=== PATIENT | female | born 1950 | race Caucasian/White ===

== ENCOUNTER → 2017-10-30 | Outpatient (CLI) | payer MEDICARE, BC ==
--- NOTE | 2017-10-31 09:04 | MM ---
Reason for exam: screening (asymptomatic). Last mammogram was performed 3 years and 7 months ago. History: Patient is postmenopausal. Family history of breast cancer in grandmother at age 75. Physical Findings: A clinical breast exam by your physician is recommended on an annual basis and results should be correlated with mammographic findings. MG 3D Screening Mammo W/Cad Bilateral CC and MLO view(s) were taken. Prior study comparison: April 12, 2014, bilateral MG screening mammo w CAD. July 31, 2012, bilateral digital screening mammo w/CAD. There are scattered fibroglandular densities. Finding: There are typically benign vascular calcifications in both breasts. There is a chronic nodularity in the left breast. Asymmetric breast tissue in the right breast, stable. There is no discrete abnormality. Benign round calcifications in the left breast. ASSESSMENT: Benign, BI-RAD 2 RECOMMENDATION: Routine screening mammogram of both breasts in 1 year.
== END | disposition home or self-care (01) ==
LOC: RADMAMWWP 11:19
PROVIDERS: ATTEND Obstetrics & Gynecology
DX: Z12.31 Encounter for screening mammogram for malignant neoplasm of breast (principal)
CPT/HCPCS: 77063; 77067

== ENCOUNTER 2018-11-19 09:45 | Day surgery (SDC) | payer MEDICARE, BC ==
[2018-11-14 12:53] VITALS: BMI 35.9
[~2018-11-19 09:45] MED LIST: LACTATED RINGERS 1,000 ML IV SCH; LIDOCAINE 1% 20 ML VIAL (10MG/ML) FOR IV START INTRADERMA PRN
[2018-11-19 10:12] VITALS: TEMP 98
[2018-11-19] MEDS ORDERED: LIDOCAINE 1% INJ 10MG/ML (20 ML MDV) ONE (11:12)
[2018-11-19] MEDS ORDERED: PROPOFOL 10 MG/ML 20 ML VIAL IV ONE (11:12)
--- NOTE | 2018-11-19 11:32 | P.PCN ---
Date of Procedure: 11/19/18 Procedure(s) Performed: BRIEF HISTORY: Patient is a 68-year-old pleasant female, scheduled for an elective colonoscopy as a part of screening for colorectal neoplasia. Her last colonoscopy was 10 years ago. PROCEDURE PERFORMED: Colonoscopy. PREOPERATIVE DIAGNOSIS: Screening for colon cancer. IV sedation per Anesthesia. PROCEDURE: After informed consent was obtained, the patient, was brought into the endoscopy unit. IV sedation was administered by Anesthesia under continuous monitoring. Digital rectal examination was normal. Initially the Olympus CF-160 flexible video colonoscope was then inserted in the rectum, gradually advanced into the cecum without any difficulty. Careful examination was performed as the scope was gradually being withdrawn. Ileocecal valve and the appendiceal orifice were visualized and appeared normal. Prep was excellent. Mucosa of the cecum, ascending colon, transverse colon, descending colon, sigmoid colon, and rectum appeared normal. Scattered sigmoid diverticulosis. Retroflexion was performed in the rectum and no lesions were seen. The patient tolerated the procedure well. IMPRESSION: Normal-appearing colon from rectum to cecum with no evidence of colorectal neoplasia Scattered similar diverticulosis. RECOMMENDATIONS: Findings of this examination were discussed with the patient as well as her family. She was advised to have a repeat screening colonoscopy in 10 years.
[2018-11-19 11:38] VITALS: RESP 16
[2018-11-19 11:45] VITALS: BP 112/75; PULSE 76
== END 2018-11-19 12:04 | disposition home or self-care (01) ==
LOC: ORWHC2ENDO 09:45
PROVIDERS: ATTEND Internal Medicine Gastroenterology
DX: Z12.11 Encounter for screening for malignant neoplasm of colon (principal); I10 Essential (primary) hypertension; E78.5 Hyperlipidemia, unspecified; K57.30 Diverticulosis of large intestine without perforation or abscess without bleeding; K21.9 Gastro-esophageal reflux disease without esophagitis; Z86.73 Personal history of transient ischemic attack (TIA), and cerebral infarction without residual deficits; Z79.899 Other long term (current) drug therapy
CPT/HCPCS: G0121; J2001; J2704; 45378

== ENCOUNTER 2018-12-03 11:51 | Emergency (ER) | payer MEDICARE, BC ==
[2018-12-03 12:14] VITALS: RESP 18
[2018-12-03] MEDS ORDERED: KETOROLAC 30 MG/ML 1 ML VIAL IM STA (12:59)
--- NOTE | 2018-12-03 13:38 | XR ---
Left hip HISTORY: Pain 2 views of the left hip Bone mineralization is reduced. There is calcification at the insertion of the gluteus tendon at the greater trochanter. Joint space and alignment are maintained. No fracture or dislocation. IMPRESSION: There may be calcific tendinitis, consider trochanteric bursitis, hip MRI may be of benef it.
--- NOTE | 2018-12-03 13:38 | XR ---
EXAMINATION TYPE: XR femur LT DATE OF EXAM: 12/03/2018 CLINICAL HISTORY: Left hip pain with no known injury TECHNIQUE: Two views of the left femur are obtained. COMPARISON: None FINDINGS: There is no acute fracture or dislocation seen in the left femur. The left hip and knee j oints appear demonstrate mild arthropathy of the knee and moderate arthropathy of the hip with subcho ndral cyst formation of the acetabular roof. The overlying soft tissue appears unremarkable. IMPRESSION: There is no acute fracture or dislocation in the left femur. 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
--- NOTE | 2018-12-03 14:07 | ED ---
Extremity Problem HPI - General Chief complaint: Extremity Problem,Nontraumatic Stated complaint: Leg/Hip pain Time Seen by Provider: 12/03/18 12:32 Source: patient Mode of arrival: wheelchair Limitations: no limitations - History of Present Illness Initial comments: Patient is a 68-year-old female with history of osteopenia is presenting to the emergency department with leg pain. Patient reports the pain started yesterday and developed in severity over an hour period, and has since been the same. Patient reports the pain originates in the hip it radiates to the suprapatellar region. Patient denies numbness or tingling but reports difficulty ambulating due to pain. Patient reports the pain is alleviated when the knee is flexed at 90 and exacerbated an any other position. Patient denies taking any medication to alleviate the pain. Patient reports a frequent history of bone fractures due to chronic osteopenia. Patient denies fever, swelling, erythema, crepitus or deformity along the region affected by the pain. - Related Data Home Medications Medication Instructions Recorded Confirmed Spironolactone-Hctz 25-25Mg 1 tab PO DAILY 11/14/18 12/03/18 [Aldactazide 25-25Mg] Atorvastatin Calcium [Lipitor] 10 mg PO DAILY 12/03/18 12/03/18 Allergies Allergy/AdvReac Type Severity Reaction Status Date / Time narcotics Allergy Unknown Uncoded 12/03/18 12:57 Review of Systems ROS Statement: Those systems with pertinent positive or pertinent negative responses have been documented in the HPI. ROS Other: All systems not noted in ROS Statement are negative. Past Medical History Past Medical History: CVA/TIA, GERD/Reflux, Hyperlipidemia, Hypertension Additional Past Medical History / Comment(s): TIA 10 yrs ago. Sinus problems. Varicose veins. 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 Past Anesthesia/Blood Transfusion Reactions: Family History of Problems w/ Anesthesia, Postoperative Nausea & Vomiting (PONV) Additional Past Anesthesia/Blood Transfusion Reaction / Comment(s): Difficulty waking up. Mom had difficulty waking up and PONV. Past Psychological History: No Psychological Hx Reported Smoking Status: Never smoker Past Alcohol Use History: None Reported Past Drug Use History: None Reported - Past Family History Father Family Medical History: Cancer General Exam Limitations: no limitations General appearance: alert, in no apparent distress Head exam: Present: atraumatic, normocephalic, normal inspection Eye exam: Present: normal appearance, PERRL, EOMI Pupils: Present: normal accommodation ENT exam: Present: normal exam, mucous membranes moist Neck exam: Present: normal inspection, full ROM Respiratory exam: Present: normal lung sounds bilaterally Cardiovascular Exam: Present: regular rate, normal rhythm, normal heart sounds Extremities exam: Present: normal inspection, tenderness (Left hip tenderness to palpation.), normal capillary refill, other (+2 dorsalis pedis and posterior tibialis, bilaterally.). Absent: full ROM (Limited left leg range of motion due to pain.), calf tenderness Back exam: Present: normal inspection. Absent: CVA tenderness (R), CVA tenderness (L) Neurological exam: Present: alert, oriented X3 Psychiatric exam: Present: normal affect, normal mood Skin exam: Present: warm, intact, normal color Course Vital Signs 12/03/18 12/03/18 12:09 14:28 Temperature 98.5 F 98.8 F Pulse Rate 88 80 Respiratory 18 18 Rate Blood Pressure 135/84 113/76 O2 Sat by Pulse 98 95 Oximetry Medical Decision Making - Medical Decision Making Patient is a 60-year-old female presents emergency Department with left leg pain. Patient was given Toradol for pain. X-ray of the left hip is suggestive of possible calcific tendinitis or trochanteric bursitis. Radiology is suggesting an MRI for further evaluation. Patient given Tylenol 3 starter pack for pain control.. Patient advised to follow-up with orthopedics. Patient advised to return to emergency department if symptoms worsen. Case discussed with physician. Disposition Clinical Impression: Leg pain, left Disposition: HOME SELF-CARE Condition: Stable Instructions (If sedation given, give patient instructions): Tendinitis (ED) Additional Instructions: Please follow-up with orthopedics. Please see prescribed medication as directed. Please return to emergency department if symptoms worsen. Is patient prescribed a controlled substance at d/c from ED?: No Referrals: Sal Valdez MD [Primary Care Provider] - 1-2 days Олег Cid MD [STAFF PHYSICIAN] - 1-2 days Arnaldo Lim DO [Doctor of Osteopathic Medicine] - 1-2 days Time of Disposition: 14:10
[2018-12-03] MEDS ORDERED: ACET/COD 300 MG/30 MG STARTER PACK 6 TAB BTL PO STA (14:08)
[2018-12-03 14:33] VITALS: BP 113/76; PULSE 80; TEMP 98.8
== END 2018-12-03 14:28 | disposition home or self-care (01) ==
LOC: EC 11:51
DX: M79.605 Pain in left leg (principal); E78.5 Hyperlipidemia, unspecified; Z79.899 Other long term (current) drug therapy; Z88.5 Allergy status to narcotic agent; Z86.73 Personal history of transient ischemic attack (TIA), and cerebral infarction without residual deficits
CPT/HCPCS: 73502; 73552; 99283; 96372; J1885

== ENCOUNTER 2018-12-07 13:39 | Emergency (ER) | payer MEDICARE, BC ==
[2018-12-07 14:04] LABS: Glucose,Whole Blood 111 mg/dL (75-99)
[2018-12-07] MEDS ORDERED: SODIUM CHLORIDE 0.9% 1,000 ML IV ONE (14:13)
--- NOTE | 2018-12-07 14:22 | ED ---
General Adult HPI - General Chief complaint: Neuro Symptoms/Deficit Stated complaint: AMS Time Seen by Provider: 12/07/18 13:54 Source: patient, family Mode of arrival: wheelchair Limitations: no limitations - History of Present Illness Initial comments: Patient is a 68 year old female who presents with her for leg pain and confusion. history given by the who states that the patient has been having leg pain for about a week. She has been seen for this and was diagnosed with bursitis, pending MRI of the hip and leg. today, the patient states that she had severe pain when she tried to stand up. She denies pain as long as she is not bearing weight. Her states that she could not remember the day today after she started complaining of pain and he brought her in for concerns of a stroke. He states that the patient has a history of TIA about 10 years ago. The patient appears anxious and very concerned. she repeatedly states she cannot remember what happened. Nursing NIHSS is 1 secondary to patient not being oriented to date and time. My NIHSS is 0. - Related Data Home Medications Medication Instructions Recorded Confirmed Spironolactone-Hctz 25-25Mg 1 tab PO DAILY 11/14/18 12/07/18 [Aldactazide 25-25Mg] Atorvastatin Calcium [Lipitor] 10 mg PO DAILY 12/03/18 12/07/18 methylPREDNISolone [Medrol Dose See Taper PO DAILY 12/07/18 12/07/18 Pack] Allergies Allergy/AdvReac Type Severity Reaction Status Date / Time narcotics Allergy Unknown Uncoded 12/03/18 12:57 Review of Systems ROS Statement: Those systems with pertinent positive or pertinent negative responses have been documented in the HPI. ROS Other: All systems not noted in ROS Statement are negative. Musculoskeletal: Reports: arthralgia, myalgia Neurological: Reports: confusion Past Medical History Past Medical History: CVA/TIA, GERD/Reflux, Hyperlipidemia, Hypertension Additional Past Medical History / Comment(s): TIA 10 yrs ago. Sinus problems. Varicose veins. 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 Past Anesthesia/Blood Transfusion Reactions: Family History of Problems w/ Anesthesia, Postoperative Nausea & Vomiting (PONV) Additional Past Anesthesia/Blood Transfusion Reaction / Comment(s): Difficulty w aking up. Mom had difficulty waking up and PONV. Past Psychological History: No Psychological Hx Reported Smoking Status: Never smoker Past Alcohol Use History: None Reported Past Drug Use History: None Reported - Past Family History Father Family Medical History: Cancer General Exam Limitations: no limitations General appearance: alert, anxious Head exam: Present: atraumatic, normocephalic Eye exam: Present: normal appearance, PERRL, EOMI. Absent: scleral icterus, nystagmus ENT exam: Present: normal exam, mucous membranes moist Neck exam: Present: normal inspection Respiratory exam: Present: normal lung sounds bilaterally. Absent: respiratory distress, wheezes Cardiovascular Exam: Present: regular rate, normal rhythm GI/Abdominal exam: Present: soft. Absent: distended, tenderness Rectal exam: Present: deferred Extremities exam: Present: normal inspection, other (patient has echymosis of bilateral feet, she and her state this is not new. feet are cool to touch, though she has palpable PT pulses. no pain to palpation, strenght and sensation intact ). Absent: tenderness, calf tenderness Back exam: Present: normal inspection Neurological exam: Present: alert, oriented X3. Absent: motor sensory deficit Psychiatric exam: Present: anxious Skin exam: Present: warm, dry, intact Course Vital Signs 12/07/18 12/07/18 12/07/18 13:41 14:00 14:15 Temperature 98.6 F Pulse Rate 104 H 70 Respiratory 20 18 18 Rate Blood Pressure 133/80 179/98 179/98 O2 Sat by Pulse 96 98 98 Oximetry 12/07/18 12/07/18 12/07/18 14:30 14:45 15:00 Temperature Pulse Rate 72 71 60 Respiratory 18 18 18 Rate Blood Pressure 159/102 153/90 154/85 O2 Sat by Pulse 96 95 96 Oximetry 12/07/18 12/07/18 12/07/18 15:15 15:30 15:45 Temperature Pulse Rate 60 61 67 Respiratory 18 18 17 Rate Blood Pressure 155/85 154/86 157/89 O2 Sat by Pulse 98 95 96 Oximetry 12/07/18 18:00 Temperature 98.0 F Pulse Rate 69 Respiratory 18 Rate Blood Pressure 150/85 O2 Sat by Pulse 96 Oximetry Medical Decision Making - Medical Decision Making Patient presents with leg pain and confusion. on initial evaluation, VS stable, though she is mildly tachycardic. patient has an NIHSS of 1 per nursing staff (secondary to not knowing the date) but an NIHSS of 0 for me. Overall, the patient appears anxious and somewhat altered, though this could be conversion disorder or stress reaction. Code stroke initiated, patient to be evaluated with basic labs including cardiac enzymes, CPK, and doppler of the left lower extremity. Hold aspirin until CT evaluation complete. 2:27 PM Case discussed with Dr. Olivo, not a TPA candidate at this time. pending CT evaluation, will update with any abnormalities. 3:06 PM EKG performed at 1459 shows NSR with an incomplete RBBB. no acute signs of ischemia. patient was able to ambulate to the rest room with assistance. Her son is now in the ED he states that she has bad anxiety and a history of panic attacks which the patient initially denied. he also brought some of her medications to the ED, the patient had 2 bottles of tylenol 3, and atorvastatin. 5:[address] evaluation of this patient is unremarkable. labs show no acute process. xrays are unchanged from prior studies. On re-evaluation, the patient is much more lucid and clear with her speech. she still appears very anxious and intermittently cries. She states that when she had her TIA 10 years ago, she had troubles with memory and I believe that today reminded her of that time. neuro exam is unchanged, NIHSS 0. currently pending lower extremity doppler study. 6:34 PM doppler negative for DVT. patient re-evaluated, now appearing more comfortable. she is lucid and speaking clearly, NIHSS again 0. at this time, patient stable for discharge. she was instructed to stay away from tylenol 3 and to use regular tylenol and motrin for pain control. follow up with Orthopaedics tomorrow, return to the ED if sx worsen or change. - Lab Data Result diagrams: 12/07/18 14:17 12/07/18 14:17 Lab Results 12/07/18 12/07/18 12/07/18 Range/Units 13:57 14:17 14:17 WBC 11.1 H (3.8-10.6) k/uL RBC 5.41 H (3.80-5.40) m/uL Hgb 15.7 (11.4-16.0) gm/dL Hct 47.2 H (34.0-46.0) % MCV 87.4 (80.0-100.0) fL MCH 29.1 (25.0-35.0) pg MCHC 33.3 (31.0-37.0) g/dL RDW 13.4 (11.5-15.5) % Plt Count 399 (150-450) k/uL Neutrophils % 84 % Lymphocytes % 10 % Monocytes % 4 % Eosinophils % 1 % Basophils % 0 % Neutrophils # 9.3 H (1.3-7.7) k/uL Lymphocytes # 1.1 (1.0-4.8) k/uL Monocytes # 0.5 (0-1.0) k/uL Eosinophils # 0.1 (0-0.7) k/uL Basophils # 0.0 (0-0.2) k/uL D-Dimer (<0.60) mg/L FEU Sodium 141 (137-145) mmol/L Potassium 4.2 (3.5-5.1) mmol/L Chloride 104 (98-107) mmol/L Carbon Dioxide 27 (22-30) mmol/L Anion Gap 10 mmol/L BUN 26 H (7-17) mg/dL Creatinine 1.04 (0.52-1.04) mg/dL Est GFR (CKD-EPI)AfAm 64 (>60 ml/min/1.73 sqM) Est GFR (CKD-EPI)NonAf 56 (>60 ml/min/1.73 sqM) Glucose 117 H (74-99) mg/dL POC Glucose (mg/dL) 111 H (75-99) mg/dL POC Glu Aluminizer ID [place] Calcium 9.9 (8.4-10.2) mg/dL Total Bilirubin 0.9 (0.2-1.3) mg/dL AST 18 (14-36) U/L ALT 21 (9-52) U/L Alkaline Phosphatase 56 (38-126) U/L Creatine Kinase 78 (30-135) U/L Troponin I (0.000-0.034) ng/mL Total Protein 7.6 (6.3-8.2) g/dL Albumin 4.6 (3.5-5.0) g/dL Urine Color Urine Appearance (Clear) Urine pH (5.0-8.0) Ur Specific [place] (1.001-1.035) Urine Protein (Negative) Urine Glucose (UA) (Negative) Urine Ketones (Negative) Urine Blood (Negative) Urine Nitrite (Negative) Urine Bilirubin (Negative) Urine Urobilinogen (<2.0) mg/dL Ur Leukocyte Esterase (Negative) Urine Opiates Screen (NotDetected) Ur Oxycodone Screen (NotDetected) Urine Methadone Screen (NotDetected) Ur Propoxyphene Screen (NotDetected) Ur Barbiturates Screen (NotDetected) U Tricyclic Antidepress (NotDetected) Ur Phencyclidine Scrn (NotDetected) Ur Amphetamines Screen (NotDetected) U Methamphetamines Scrn (NotDetected) U Benzodiazepines Scrn (NotDetected) Urine Cocaine Screen (NotDetected) U Marijuana (THC) Screen (NotDetected) 12/07/18 12/07/18 12/07/18 Range/Units 14:17 14:17 18:05 WBC (3.8-10.6) k/uL RBC (3.80-5.40) m/uL Hgb (11.4-16.0) gm/dL Hct (34.0-46.0) % MCV (80.0-100.0) fL MCH (25.0-35.0) pg MCHC (31.0-37.0) g/dL RDW (11.5-15.5) % Plt Count (150-450) k/uL Neutrophils % % Lymphocytes % % Monocytes % % Eosinophils % % Basophils % % Neutrophils # (1.3-7.7) k/uL Lymphocytes # (1.0-4.8) k/uL Monocytes # (0-1.0) k/uL Eosinophils # (0-0.7) k/uL Basophils # (0-0.2) k/uL D-Dimer 0.58 (<0.60) mg/L FEU Sodium (137-145) mmol/L Potassium (3.5-5.1) mmol/L Chloride (98-107) mmol/L Carbon Dioxide (22-30) mmol/L Anion Gap mmol/L BUN (7-17) mg/dL Creatinine (0.52-1.04) mg/dL Est GFR (CKD-EPI)AfAm (>60 ml/min/1.73 sqM) Est GFR (CKD-EPI)NonAf (>60 ml/min/1.73 sqM) Glucose (74-99) mg/dL POC Glucose (mg/dL) (75-99) mg/dL POC Glu Aluminizer ID Calcium (8.4-10.2) mg/dL Total Bilirubin (0.2-1.3) mg/dL AST (14-36) U/L ALT (9-52) U/L Alkaline Phosphatase (38-126) U/L Creatine Kinase (30-135) U/L Troponin I <0.012 (0.000-0.034) ng/mL Total Protein (6.3-8.2) g/dL Albumin (3.5-5.0) g/dL Urine Color Urine Appearance (Clear) Urine pH (5.0-8.0) Ur Specific [place] (1.001-1.035) Urine Protein (Negative) Urine Glucose (UA) (Negative) Urine Ketones (Negative) Urine Blood (Negative) Urine Nitrite (Negative) Urine Bilirubin (Negative) Urine Urobilinogen (<2.0) mg/dL Ur Leukocyte Esterase (Negative) Urine Opiates Screen Detected H (NotDetected) Ur Oxycodone Screen Not Detected (NotDetected) Urine Methadone Screen Not Detected (NotDetected) Ur Propoxyphene Screen Not Detected (NotDetected) Ur Barbiturates Screen Not Detected (NotDetected) U Tricyclic Antidepress Not Detected (NotDetected) Ur Phencyclidine Scrn Not Detected (NotDetected) Ur Amphetamines Screen Not Detected (NotDetected) U Methamphetamines Scrn Not Detected (NotDetected) U Benzodiazepines Scrn Not Detected (NotDetected) Urine Cocaine Screen Not Detected (NotDetected) U Marijuana (THC) Screen Not Detected (NotDetected) 12/07/18 Range/Units 18:05 WBC (3.8-10.6) k/uL RBC (3.80-5.40) m/uL Hgb (11.4-16.0) gm/dL Hct (34.0-46.0) % MCV (80.0-100.0) fL MCH (25.0-35.0) pg MCHC (31.0-37.0) g/dL RDW (11.5-15.5) % Plt Count (150-450) k/uL Neutrophils % % Lymphocytes % % Monocytes % % Eosinophils % % Basophils % % Neutrophils # (1.3-7.7) k/uL Lymphocytes # (1.0-4.8) k/uL Monocytes # (0-1.0) k/uL Eosinophils # (0-0.7) k/uL Basophils # (0-0.2) k/uL D-Dimer (<0.60) mg/L FEU Sodium (137-145) mmol/L Potassium (3.5-5.1) mmol/L Chloride (98-107) mmol/L Carbon Dioxide (22-30) mmol/L Anion Gap mmol/L BUN (7-17) mg/dL Creatinine (0.52-1.04) mg/dL Est GFR (CKD-EPI)AfAm (>60 ml/min/1.73 sqM) Est GFR (CKD-EPI)NonAf (>60 ml/min/1.73 sqM) Glucose (74-99) mg/dL POC Glucose (mg/dL) (75-99) mg/dL POC Glu Aluminizer ID Calcium (8.4-10.2) mg/dL Total Bilirubin (0.2-1.3) mg/dL AST (14-36) U/L ALT (9-52) U/L Alkaline Phosphatase (38-126) U/L Creatine Kinase (30-135) U/L Troponin I (0.000-0.034) ng/mL Total Protein (6.3-8.2) g/dL Albumin (3.5-5.0) g/dL Urine Color Light Yellow Urine Appearance Clear (Clear) Urine pH 7.0 (5.0-8.0) Ur Specific [place] 1.017 (1.001-1.035) Urine Protein Negative (Negative) Urine Glucose (UA) Negative (Negative) Urine Ketones Negative (Negative) Urine Blood Negative (Negative) Urine Nitrite Negative (Negative) Urine Bilirubin Negative (Negative) Urine Urobilinogen <2.0 (<2.0) mg/dL Ur Leukocyte Esterase Negative (Negative) Urine Opiates Screen (NotDetected) Ur Oxycodone Screen (NotDetected) Urine Methadone Screen (NotDetected) Ur Propoxyphene Screen (NotDetected) Ur Barbiturates Screen (NotDetected) U Tricyclic Antidepress (NotDetected) Ur Phencyclidine Scrn (NotDetected) Ur Amphetamines Screen (NotDetected) U Methamphetamines Scrn (NotDetected) U Benzodiazepines Scrn (NotDetected) Urine Cocaine Screen (NotDetected) U Marijuana (THC) Screen (NotDetected) Disposition Clinical Impression: Leg pain, Arthritis Disposition: HOME SELF-CARE Condition: Good Instructions (If sedation given, give patient instructions): Arthritis (ED) Is patient prescribed a controlled substance at d/c from ED?: No Referrals: Sal Valdez MD [Primary Care Provider] - 1-2 days
[2018-12-07 14:28] LABS: Basophils % (A) 0 %; Eosinophils # (A) 0.1 k/uL (0-0.7); Eosinophils % (A) 1 %; HCT 47.2 % (34.0-46.0); HGB 15.7 gm/dL (11.4-16.0); Lymphocytes # (A) 1.1 k/uL (1.0-4.8); Lymphocytes % (A) 10 %; MCH 29.1 pg (25.0-35.0); MCHC 33.3 g/dL (31.0-37.0); MCV 87.4 fL (80.0-100.0); Mean Platelet Volume 7.1; Monocytes # (A) 0.5 k/uL (0-1.0); Monocytes % (A) 4 %; Neutrophils # (A) 9.3 k/uL (1.3-7.7); Neutrophils % (A) 84 %; Platelet Count 399 k/uL (150-450); RBC 5.41 m/uL (3.80-5.40); RDW 13.4 % (11.5-15.5); WBC 11.1 k/uL (3.8-10.6)
[2018-12-07 14:36] LABS: Albumin 4.6 g/dL (3.5-5.0); Calcium 9.9 mg/dL (8.4-10.2); Potassium 4.2 mmol/L (3.5-5.1); Total Bilirubin 0.9 mg/dL (0.2-1.3); Total Protein 7.6 g/dL (6.3-8.2)
--- NOTE | 2018-12-07 14:38 | CT ---
EXAMINATION TYPE: CODE STROKE: CT brain wo contr DATE OF EXAM: 12/07/2018 HISTORY: Neuro deficits. CT DLP: 1534 mGycm. Automated Exposure Control for Dose Reduction was Utilized. TECHNIQUE: CT scan of the head is performed without contrast. COMPARISON: CT brain February 15, 2013. FINDINGS: There is no acute intracranial hemorrhage or midline shift identified. There is diffuse v entricular and sulcal prominence consistent with diffuse age-related cerebral atrophy. There is low- attenuation in the periventricular white matter consistent with chronic small vessel ischemic change. A few small mucous retention cysts or polyps and/or mucosal thickening in the maxillary sinuses are present. Globes are intact bilaterally. IMPRESSION: No acute intracranial hemorrhage or midline shift. There is mild diffuse age-related ce rebral atrophy and chronic small vessel ischemic change identified with progression from 2013 CT note d.
--- NOTE | 2018-12-07 15:10 | CT ---
EXAMINATION TYPE: CT angio head neck DATE OF EXAM: 12/07/2018 HISTORY: Neuro deficits. COMPARISON: NONE CT DLP: 476 mGycm. Automated Exposure Control for Dose Reduction was Utilized. TECHNIQUE: CTA scan of the head and neck are performed with IV Contrast, patient injected with 50ml mL of Isovue 370, axial images are obtained, coronal and sagittal reformatted images are reviewed. Th ree-D reconstructed images are created on an independent workstation and reviewed. FINDINGS: Carotid/Vascular Structures: There is normal three-vessel origin from the aortic arch. No significant plaque or stenosis is present. Right common carotid artery shows normal origin from right brachiocep halic artery. There is no significant plaque or stenosis in right common or internal carotid artery i ncluding at level of carotid bulb. Tortuous course to right internal carotid artery is noted. There i s patent right external carotid artery without significant plaque or stenosis. There is no significant plaque or stenosis in the left common or internal carotid artery including a level carotid bulb. Tortuous course to left internal carotid artery is seen. There is a patent left e xternal carotid artery without significant plaque or stenosis. There is a left vertebral artery. Vertebral arteries are patent to basilar junction. There are hypopl astic bilateral posterior communicating arteries. There is no significant focal stenosis or aneurysma l change in the posterior circulation. Images of the anterior circulation show patent anterior communicating artery. There is no significant focal stenosis or aneurysmal change identified. Other: Some eccentric mucosal thickening in the inferior aspect maxillary sinuses is present bilatera lly. There is heterogeneous thyroid with right thyroid enlargement with substernal extension consiste nt with thyroid goiter. Large bridging osteophytes anteriorly C4-C5 level are noted. IMPRESSION: 1. No significant stenosis in common or internal carotid arteries bilaterally. 2. No significant stenosis or aneurysmal change at the level of que[place] of [place].
--- NOTE | 2018-12-07 15:33 | XR ---
EXAMINATION TYPE: XR femur LT, XR Hip Complete LT DATE OF EXAM: 12/07/2018 CLINICAL HISTORY: Femur and hip pain. TECHNIQUE: Two views of the left femur are obtained. COMPARISON: Left femur and hip x-ray 4 days ago. FINDINGS: There is no acute fracture or dislocation in the left hip. Mild to moderate superior joint space loss with mild acetabular spurring is redemonstrated. Some calcification near greater trochante r is again seen. There is no acute fracture or dislocation seen in the left femur. Mild to moderate tricompartment lencho nt space loss in the left knee is redemonstrated. The overlying soft tissue appears unremarkable. IMPRESSION: As above, no significant change from prior.
--- NOTE | 2018-12-07 18:05 | US ---
EXAMINATION TYPE: US venous doppler duplex LE LT DATE OF EXAM: 12/07/2018 4:04 PM COMPARISON: NONE CLINICAL HISTORY: Pain. SIDE PERFORMED: Left TECHNIQUE: The lower extremity deep venous system is examined utilizing real time linear array sonog aleks with graded compression, doppler sonography and color-flow sonography. VESSELS IMAGED: External Iliac Vein (EIV) Common Femoral Vein Deep Femoral Vein Greater Saphenous Vein * Femoral Vein Popliteal Vein Small Saphenous Vein * Proximal Calf Veins (* superficial vessels) Left Leg: Negative for DVT Grayscale, color doppler, spectral doppler imaging performed of the deep veins of the left lower extr emity. There is normal flow, compressibility, vascular waveforms. IMPRESSION: No ultrasound evidence for acute DVT in the left lower extremity.
[2018-12-07 18:07] VITALS: BP 150/85; PULSE 69; RESP 18; TEMP 98
[2018-12-07 18:17] LABS: Appearance,Urine Clear (Clear); Bilirubin,Urine Negative (Negative); Blood,Urine Negative (Negative); Color,Urine Light Yellow; Glucose,Urine (UA) Negative (Negative); Ketones,Urine Negative (Negative); Leukocyte Esterase,Urine Negative (Negative); Nitrite,Urine Negative (Negative); Protein,Urine Negative (Negative); Specific Gravity,Urine 1.017 (1.001-1.035); Urobilinogen,Urine <2.0 mg/dL (<2.0)
[2018-12-07 18:28] LABS: Amphetamine Screen,Urine Not Detected (NotDetected); Barbiturate Screen,Urine Not Detected (NotDetected); Benzodiazepines Screen,Urine Not Detected (NotDetected); Cocaine Screen,Urine Not Detected (NotDetected); Methadone Screen, Urine Not Detected (NotDetected); Opiate Screen,Urine Detected (NotDetected); Oxycodone Screen, Urine Not Detected (NotDetected); Phencyclidine Screen,Urine Not Detected (NotDetected); Tricyclic Antidepressant,Urine Not Detected (NotDetected); Urn Cannabinoid Scrn Not Detected (NotDetected)
== END 2018-12-07 18:58 | disposition home or self-care (01) ==
LOC: EC 13:39
DX: M19.072 Primary osteoarthritis, left ankle and foot (principal); M79.605 Pain in left leg; R41.82 Altered mental status, unspecified; I10 Essential (primary) hypertension; E78.5 Hyperlipidemia, unspecified; Z86.73 Personal history of transient ischemic attack (TIA), and cerebral infarction without residual deficits; Z96.698 Presence of other orthopedic joint implants; Z79.52 Long term (current) use of systemic steroids; Z79.899 Other long term (current) drug therapy; Z88.5 Allergy status to narcotic agent
CPT/HCPCS: 96360 ×2; 99285 ×2; 36415; 93005; 85379; 80053; 82550; 84484; 85025; 81003; 80306; 73502; 73552; 93971; 70496; 70450; 70498; Q9967

== ENCOUNTER → 2019-01-06 | Outpatient (CLI) | payer MEDICARE, BC ==
--- NOTE | 2019-01-06 16:12 | US ---
EXAMINATION TYPE: US kidneys/renal and bladder DATE OF EXAM: 01/06/2019 COMPARISON: NONE, patient's previous exam is unavailable for correlation. CLINICAL HISTORY: N28.1 Cyst of kidney. Pt states had MRI at outside facility showing renal cyst EXAM MEASUREMENTS: Right Kidney: 10.0 x 4.5 x 4.6 cm Left Kidney: 9.0 x 4.1 x 4.6 cm Right Kidney: Cyst mid= 5.0 x 5.0 x 5.4 cm is compatible with simple cyst Left Kidney: Appeared wnl Bladder: wnl Bilateral Jets seen: No There is no evidence for hydronephrosis at this point in time. No nephrolithiasis is seen. The urin vj bladder is anechoic. Cortical medullary differentiation maintained bilaterally. IMPRESSION:
== END | disposition home or self-care (01) ==
LOC: RADUSWWP 12:39
PROVIDERS: ATTEND Internal Medicine
DX: N28.1 Cyst of kidney, acquired (principal)
CPT/HCPCS: 76770

== ENCOUNTER 2020-05-24 13:50 | Inpatient (IN) | payer BC, MEDICARE ==
[2020-05-24] MEDS ORDERED: ALBUTEROL HFA INHALER INHALATION STA (14:14)
[2020-05-24] MEDS ORDERED: ACETAMINOPHEN TAB 500 MG TAB PO STA (14:14)
[2020-05-24] MEDS ORDERED: ALBUTEROL HFA INHALER INHALATION PRN (14:14)
[2020-05-24] MEDS ORDERED: SODIUM CHLORIDE 0.9% 1,000 ML IV STA (14:15)
[2020-05-24] MEDS ORDERED: ONDANSETRON 4 MG/2 ML VIAL IVP STA (14:15)
--- NOTE | 2020-05-24 14:25 | ED ---
General Adult HPI - General Source: patient, RN notes reviewed Mode of arrival: wheelchair Limitations: no limitations <Isaiah Lawson - Last Filed: 05/24/20 14:38> <Craig Cuevas - Last Filed: 05/24/20 16:05> - General Chief complaint: Shortness of Breath Stated complaint: Cough,Poss Pneumonia Time Seen by Provider: 05/24/20 14:14 - History of Present Illness Initial comments: Patient is a pleasant 70-year-old female presenting to the emergency Department with cough fever difficulty in breathing. Onset of symptoms was around for 5 days ago. Patient did have bronchitis a couple weeks ago. Patient did see her doctor today and had x-ray done with concern for pneumonia. Patient was advised to come to the emergency department. Patient does have cough, dry. Patient has had nausea with some vomiting. Patient has had some decreased oral intake. (Isaiah Lawson) - Related Data Home Medications Medication Instructions Recorded Confirmed Spironolactone-Hctz 25-25Mg 1 tab PO DAILY 11/14/18 05/24/20 [Aldactazide 25-25Mg] Atorvastatin Calcium [Lipitor] 10 mg PO DAILY 12/03/18 05/24/20 Acetaminophen Tab [Tylenol Tab] 1,000 mg PO Q6HR PRN 05/24/20 05/24/20 Albuterol Sulfate [Ventolin HFA] 1 - 2 puff INHALATION RT-Q6H PRN 05/24/2007/13 Allergies Allergy/AdvReac Type Severity Reaction Status Date / Time narcotics Allergy Unknown Uncoded 05/24/20 15:05 Review of Systems ROS Other: All systems not noted in ROS Statement are negative. Constitutional: Reports: fever, chills Eyes: Denies: eye pain ENT: Denies: ear pain Respiratory: Reports: cough, dyspnea Cardiovascular: Denies: chest pain Endocrine: Reports: fatigue Gastrointestinal: Reports: nausea, vomiting. Denies: abdominal pain Genitourinary: Denies: dysuria Musculoskeletal: Denies: back pain Skin: Denies: rash Neurological: Denies: weakness <Isaiah Lawson - Last Filed: 05/24/20 14:38> ROS Other: All systems not noted in ROS Statement are negative. <Craig Cuevas - Last Filed: 05/24/20 16:05> ROS Statement: Those systems with pertinent positive or pertinent negative responses have been documented in the HPI. Past Medical History Past Medical History: CVA/TIA, GERD/Reflux, Hyperlipidemia, Hypertension Additional Past Medical History / Comment(s): TIA 10 yrs ago. Sinus problems. Varicose veins. 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 Past Anesthesia/Blood Transfusion Reactions: Family History of Problems w/ Anesthesia, Postoperative Nausea & Vomiting (PONV) Additional Past Anesthesia/Blood Transfusion Reaction / Comment(s): Difficulty waking up. Mom had difficulty waking up and PONV. Past Psychological History: No Psychological Hx Reported Smoking Status: Never smoker Past Alcohol Use History: None Reported Past Drug Use History: None Reported - Past Family History Father Family Medical History: Cancer <Isaiah Lawson - Last Filed: 05/24/20 14:38> General Exam Limitations: no limitations General appearance: alert, in no apparent distress Head exam: Present: normocephalic Eye exam: Present: normal appearance ENT exam: Present: normal oropharynx Neck exam: Present: normal inspection Respiratory exam: Present: wheezes (Trace expiratory). Absent: respiratory distress Cardiovascular Exam: Present: tachycardia GI/Abdominal exam: Present: soft. Absent: tenderness Extremities exam: Present: normal inspection. Absent: pedal edema, calf t enderness Neurological exam: Present: alert Psychiatric exam: Present: normal affect, normal mood Skin exam: Present: normal color <Isaiah Lawson Last Filed: 05/24/20 14:38> Course Vital Signs 05/24/20 05/24/20 13:57 15:09 Temperature 101.1 F H Pulse Rate 115 H 107 H Respiratory 18 20 Rate Blood Pressure 123/73 137/85 O2 Sat by Pulse 97 94 L Oximetry EKG Findings - EKG Comments: EKG Findings:: Normal sinus rhythm 95. MI 158. QRS 110. QT 360. QTC 452. Normal axis. Incomplete right bundle-branch block. No acute ST change. <Isaiah Lawson - Last Filed: 05/24/20 14:38> Medical Decision Making - Lab Data Result diagrams: 05/24/20 14:42 05/24/20 14:42 <Craig Cuevas - Last Filed: 05/24/20 16:05> - Medical Decision Making 70-year-old female presenting for evaluation of possible pneumonia. Patient care was signed out at shift change awaiting laboratory testing including coronavirus and chest x-ray. Chest x-ray shows interstitial pneumonia. Coronavirus testing is positive. Patient has oxygenation around 90% on 2 L. She dips into the mid 80s on room air, approximately 86% on room air. She started on dexamethasone, given dose of Lovenox. She will be admitted for supplemental oxygen, close monitoring. Case is discussed with Dr. Conner who will admit. (Craig Cuevas) - Lab Data Lab Results 05/24/20 05/24/20 05/24/20 Range/Units 14:42 14:42 14:42 WBC 3.3 L (3.8-10.6) k/uL RBC 5.20 (3.80-5.40) m/uL Hgb 15.1 (11.4-16.0) gm/dL Hct 45.2 (34.0-46.0) % MCV 87.0 (80.0-100.0) fL MCH 29.0 (25.0-35.0) pg MCHC 33.3 (31.0-37.0) g/dL RDW 13.2 (11.5-15.5) % Plt Count 224 (150-450) k/uL MPV 7.9 Neutrophils % 74 % Lymphocytes % 17 % Monocytes % 6 % Eosinophils % 1 % Basophils % 1 % Neutrophils # 2.4 (1.3-7.7) k/uL Lymphocytes # 0.6 L (1.0-4.8) k/uL Monocytes # 0.2 (0-1.0) k/uL Eosinophils # 0.0 (0-0.7) k/uL Basophils # 0.0 (0-0.2) k/uL PT 9.5 (9.0-12.0) sec INR 0.9 (<1.2) APTT 25.4 (22.0-30.0) sec Sodium 134 L (137-145) mmol/L Potassium 3.5 (3.5-5.1) mmol/L Chloride 96 L (98-107) mmol/L Carbon Dioxide 30 (22-30) mmol/L Anion Gap 8 mmol/L BUN 14 (7-17) mg/dL Creatinine 1.11 H (0.52-1.04) mg/dL Est GFR (CKD-EPI)AfAm 58 (>60 ml/min/1.73 sqM) Est GFR (CKD-EPI)NonAf 51 (>60 ml/min/1.73 sqM) Glucose 109 H (74-99) mg/dL Plasma Lactic Acid Roman (0.7-2.0) mmol/L Calcium 8.9 (8.4-10.2) mg/dL Magnesium 1.7 (1.6-2.3) mg/dL Total Bilirubin 0.7 (0.2-1.3) mg/dL AST 41 H (14-36) U/L ALT 30 (4-34) U/L Alkaline Phosphatase 59 (38-126) U/L Lactate Dehydrogenase 641 H (313-618) U/L C-Reactive Protein 9.4 (<10.0) mg/L Total Protein 6.9 (6.3-8.2) g/dL Albumin 4.2 (3.5-5.0) g/dL Coronavirus (PCR) (Not Detectd) 05/24/20 05/24/20 Range/Units 14:42 14:48 WBC (3.8-10.6) k/uL RBC (3.80-5.40) m/uL Hgb (11.4-16.0) gm/dL Hct (34.0-46.0) % MCV (80.0-100.0) fL MCH (25.0-35.0) pg MCHC (31.0-37.0) g/dL RDW (11.5-15.5) % Plt Count (150-450) k/uL MPV Neutrophils % % Lymphocytes % % Monocytes % % Eosinophils % % Basophils % % Neutrophils # (1.3-7.7) k/uL Lymphocytes # (1.0-4.8) k/uL Monocytes # (0-1.0) k/uL Eosinophils # (0-0.7) k/uL Basophils # (0-0.2) k/uL PT (9.0-12.0) sec INR (<1.2) APTT (22.0-30.0) sec Sodium (137-145) mmol/L Potassium (3.5-5.1) mmol/L Chloride (98-107) mmol/L Carbon Dioxide (22-30) mmol/L Anion Gap mmol/L BUN (7-17) mg/dL Creatinine (0.52-1.04) mg/dL Est GFR (CKD-EPI)AfAm (>60 ml/min/1.73 sqM) Est GFR (CKD-EPI)NonAf (>60 ml/min/1.73 sqM) Glucose (74-99) mg/dL Plasma Lactic Acid Roman 1.0 (0.7-2.0) mmol/L Calcium (8.4-10.2) mg/dL Magnesium (1.6-2.3) mg/dL Total Bilirubin (0.2-1.3) mg/dL AST (14-36) U/L ALT (4-34) U/L Alkaline Phosphatase (38-126) U/L Lactate Dehydrogenase (313-618) U/L C-Reactive Protein (<10.0) mg/L Total Protein (6.3-8.2) g/dL Albumin (3.5-5.0) g/dL Coronavirus (PCR) Detected A (Not Detectd) Disposition <Isaiah Lawson - Last Filed: 05/24/20 14:38> Is patient prescribed a controlled substance at d/c from ED?: No Decision to Admit Reason: Admit from EC Decision Date: 05/24/20 Decision Time: 16:05 <Craig Cuevas - Last Filed: 05/24/20 16:05> Clinical Impression: COVID-19, Hypoxia Disposition: ADMITTED IP TO THIS HOSP Condition: Stable Referrals: Sal Valdez MD [Primary Care Provider] - 1-2 days
[2020-05-24 14:57] LABS: Basophils % (A) 1 %; Eosinophils % (A) 1 %; HCT 45.2 % (34.0-46.0); HGB 15.1 gm/dL (11.4-16.0); Lymphocytes # (A) 0.6 k/uL (1.0-4.8); Lymphocytes % (A) 17 %; MCHC 33.3 g/dL (31.0-37.0); Mean Platelet Volume 7.9; Monocytes # (A) 0.2 k/uL (0-1.0); Monocytes % (A) 6 %; Neutrophils # (A) 2.4 k/uL (1.3-7.7); Neutrophils % (A) 74 %; Platelet Count 224 k/uL (150-450); RDW 13.2 % (11.5-15.5); WBC 3.3 k/uL (3.8-10.6)
[2020-05-24 15:08] LABS: Albumin 4.2 g/dL (3.5-5.0); C Reactive Protein 9.4 mg/L (<10.0); Calcium 8.9 mg/dL (8.4-10.2); Magnesium 1.7 mg/dL (1.6-2.3); Potassium 3.5 mmol/L (3.5-5.1); Total Bilirubin 0.7 mg/dL (0.2-1.3); Total Protein 6.9 g/dL (6.3-8.2)
[2020-05-24 15:09] LABS: INR 0.9 (<1.2); Partial Thromboplastin Time 25.4 sec (22.0-30.0); Prothrombin Time 9.5 sec (9.0-12.0)
--- NOTE | 2020-05-24 15:26 | XR ---
EXAMINATION TYPE: XR chest 1V portable DATE OF EXAM: 05/24/2020 COMPARISON: 05/24/2020 HISTORY: Cough and fever TECHNIQUE: Single frontal view of the chest is obtained. FINDINGS: Chronic deformity of the rib cage. Coarsened interstitium. Heart size normal. No pleural e ffusion or pneumothorax heart size normal. Underlying COPD suspected. Diffuse osteopenia. Arthropathy of the shoulders. IMPRESSION: Coarsened interstitium correlate for interstitial pneumonitis or viral pneumonitis with basilar atelectasis or early infiltrate.
[2020-05-24] MEDS ORDERED: dexAMETHasone 2 MG TAB PO STA (15:32)
[2020-05-24] MEDS ORDERED: NALOXONE 0.4 MG/ML 1 ML VIAL IV PRN (16:02)
[2020-05-24] MEDS ORDERED: ENOXAPARIN 40 MG/0.4 ML SYRINGE SQ STA (16:02)
[2020-05-24] MEDS: ALBUTEROL HFA INHALER INHALATION SCH (20:02)
[2020-05-24] MEDS: methylPREDNISolone SOD SUCCI 40 MG/ML 1 ML VIAL IV SCH (23:24)
[2020-05-25] MEDS: methylPREDNISolone SOD SUCCI 40 MG/ML 1 ML VIAL IV SCH ×3 (00:51→15:48)
[2020-05-25] MEDS: ALBUTEROL HFA INHALER INHALATION SCH ×4 (01:35→19:54)
[2020-05-25 02:25] LABS: Ferritin 377.2 ng/mL (10.0-291.0)
[2020-05-25] MEDS: ENOXAPARIN 100 MG/ML SYRINGE SQ SCH ×3 (02:38→21:08)
[2020-05-25] MEDS: ATORVASTATIN 10 MG TAB PO SCH (08:23)
[2020-05-25] MEDS: ACETAMINOPHEN TAB 500 MG TAB PO PRN ×2 (08:23→21:35)
[2020-05-25] MEDS ORDERED: dexAMETHasone 2 MG TAB PO SCH (09:00)
[2020-05-25] MEDS: FAMOTIDINE 20 MG TAB PO SCH ×2 (11:38→21:07)
[2020-05-25] MEDS: CHOLECALCIFEROL 1,000 UNIT TAB PO SCH (11:38)
[2020-05-25] MEDS: ASCORBIC ACID 500 MG TAB PO SCH (11:38)
[2020-05-25] MEDS ORDERED: REMDESIVIR 200 MG in SODIUM CHLORIDE 0.9% 250 ML IVPB ONE (15:00)
--- NOTE | 2020-05-25 20:31 | CONS ---
CONSULTATION DATE OF SERVICE: 05/25/2020. REASON FOR CONSULTATION: Covid infection. HISTORY OF PRESENT ILLNESS: The patient is a 70-year-old female who presented to the ER at [facility] yesterday afternoon with cough, fever and difficulty breathing and the patient says has been going on for about 5 days before presentation to hospital. The patient mentioned started as a head cold and started having more cough which has been moderate intensity but mostly dry in nature. The patient also complaining of bilateral lower acute sporadic chest pain from all the coughing. She was complaining of shortness of breath with breathing getting worse. The patient went to see her primary care physician. Patient did have an x-ray done which did show pneumonia. The patient subsequently was advised to go to the hospital. On arrival to the ER at this facility, the patient did have a fever of 101 degrees Fahrenheit. The patient was tachycardic and did have hypoxemia with O2 sats of 86% on room air, requiring supplemental oxygen, currently 95% on 3 L cannula. The patient did have lymphopenia as well as leukopenia. D-dimer was 0.72. Ferritin elevated. [place] PCR came back positive. Influenza PCR was negative. The patient did have a chest x-ray correlate for interstitial pneumonitis or viral pneumonia. Patient was admitted to hospital. Infectious disease was consulted for further management of antibiotic therapy. REVIEW OF SYSTEMS: Positive points have been mentioned in HPI. Rest of the systems are negative. PAST MEDICAL HISTORY: CVA TIA, gastroesophageal reflux disease, hyperlipidemia, hypertension. PAST SURGICAL HISTORY: Past surgical history of tubal ligation, hernia repair, tumor removed from the hand and appendectomy. SOCIAL HISTORY: No history of smoking, drinking or drug use. FAMILY HISTORY: Father with history of cancer. ALLERGIES: ALLERGIES TO NARCOTICS. MEDICATIONS: Include the patient is currently on Tylenol, Ventolin, vitamin C, Lipitor, Lovenox, Pepcid, Solu-Medrol, Narcan. PHYSICAL EXAMINATION: Blood pressure 113/61 with a pulse of 82, temperature 98.2. She is 95% on 3 L nasal cannula. General description is an elderly female lying in bed in no distress. No tachypnea or accessory muscles of respiration use. HEENT: Examination no pallor or scleral icterus. Oral mucous membranes dry. NECK: Trachea central. No thyromegaly. LUNGS unlabored breathing. Coarse breath sounds bilaterally. No wheeze. HEART S1, S2. Regular rate and rhythm. ABDOMEN: Soft, no tenderness. No guarding. No rigidity. EXTREMITIES: No edema of the feet. SKIN examination: No rash or mass palpable. NEUROLOGICALLY: Patient is awake, alert, oriented x3. Mood and affect normal. LABS: Hemoglobin 15.8, white count 3.3, BUN of 14, creatinine 1.11. D-dimer 0.72. DIAGNOSTIC IMPRESSION AND PLAN: Patient admitted to the hospital with acute sepsis and respiratory failure likely secondary to acute COVID-19 pneumonia with no clinical suspicion secondary bacterial pneumonia. PLAN: 1. Patient started on Remdesivir as the patient was hypoxic on presentation to hospital and symptoms also was 5 days. This was discussed with pharmacy. The patient started on Remdesivir 200 mg followed by 100 mg daily for 4 more doses. 2. Solu-Medrol, Lovenox and zinc sulfate. 3. respiratory support. 4. We will follow on clinical condition and further adjust medication if needed. Thank you for this consultation. Will follow the patient along with you. MMODL / IJN: [id number] /
--- NOTE | 2020-05-25 22:51 | P.HPIM ---
History of Present Illness H&P Date: 05/25/20 Chief Complaint: Short of breath History of presenting complaint: This is a pleasant 70-year-old patient of Dr. Sal Valdez. Chronic stable medical conditions include GERD, hypertension, hyperlipidemia. Patient about 5 days ago started off with slight cough progressive shortness of breath and started having fever and chills. No change in smell or taste. Nausea present. Decreased appetite. Tired rundown. Did go to see her family doctor for that she was transferred down here. Review of systems: GEN.: Fever and chills tired decreased appetite EYES: None HEENT: None NECK: None RESPIRATORY: As above CARDIOVASCULAR: None GASTROINTESTINAL: None GENITOURINARY: None MUSCULOSKELETAL: None LYMPHATICS: None HEMATOLOGICAL: None PSYCHIATRY: None NEUROLOGICAL: None Past medical history to include: TIA, GERD, hypertension, hyperlipidemia, varicose vein stripping Social history: . Does not smoke or drink alcohol. . Physical examination: VITAL SIGNS: 101.1, 115, 18, 123/73, 97% on room air, later did drop down to 86% on room air GENERAL: BMI 36.3, laying in bed, tired. EYES: Pupils equal. Conjunctiva normal. HEENT: External appearance of nose and ears normal, oral cavity grossly normal. NECK: JVD not raised; masses not palpable. HEART: First and second heart sounds are normal; no edema. LUNGS: Respiratory rate increased, some wheezing decreased breath sounds. ABDOMEN: Soft, nontender, liver spleen not palpable, no masses palpable. PSYCH: [Alert and oriented x3; mood and affect anxious l. NEUROLOGICAL: Cranial nerves grossly intact; no facial asymmetry, power and sensation grossly intact. LYMPHATICS: No lymph nodes palpable in the axilla and neck INVESTIGATIONS, reviewed in the clinical context: White count 3.3 hemoglobin 15.1 platelets 224 lymphocytes decreased at 0.6 D-dimer 0.7 to potassium 3.5 creatinine 1.11 CRP 9.4 pro-calcitonin 0.10 Coronavirus P/Cr-detected Influenza type A type B both negative EKG tracing personally reviewed by me-normal sinus rhythm, incomplete right bundle branch block Chest x-ray film personally reviewed by me-prominent interstitium Assessment: -Bilateral COVID 19 pneumonia -Sepsis from COVID 19 pneumonia -Acute hypoxic respiratory failure from above -GERD -Hyperlipidemia -Essential hypertension -Obesity BMI 36.3 Plan: Patient started on Ventolin inhaler, vitamin C, vitamin D3, Pepcid, IV Solu- Medrol. Also be started on Remdesivir. ID consulted. Care was discussed with the patient question also. Past Medical History Past Medical History: CVA/TIA, GERD/Reflux, Hyperlipidemia, Hypertension Additional Past Medical History / Comment(s): TIA 10 yrs ago. Sinus problems. Varicose veins. 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 Past Anesthesia/Blood Transfusion Reactions: Family History of Problems w/ Anesthesia, Postoperative Nausea & Vomiting (PONV) Additional Past Anesthesia/Blood Transfusion Reaction / Comment(s): Difficulty waking up. Mom had difficulty waking up and PONV. Past Psychological History: No Psychological Hx Reported Smoking Status: Never smoker Past Alcohol Use History: None Reported Past Drug Use History: None Reported - Past Family History Father Family Medical History: Cancer Medications and Allergies Home Medications Medication Instructions Recorded Confirmed Type Spironolactone-Hctz 25-25Mg 1 tab PO DAILY 11/14/18 05/24/20 History [Aldactazide 25-25Mg] Atorvastatin Calcium [Lipitor] 10 mg PO DAILY 12/03/18 05/24/20 History Acetaminophen Tab [Tylenol Tab] 1,000 mg PO Q6HR PRN 05/24/20 05/24/20 History Albuterol Sulfate [Ventolin HFA] 1 - 2 puff INHALATION RT-Q6H PRN 05/24/20 05/24/20 History Allergies Allergy/AdvReac Type Severity Reaction Status Date / Time narcotics Allergy Unknown Uncoded 05/24/20 15:05 Physical Exam Vitals: Vital Signs Temp Pulse Pulse Resp BP BP Pulse Ox 05/25/20 08:00 98.9 F 89 19 105/66 91 L 05/25/20 02:00 99.8 F H 111 H 20 105/66 94 L 05/24/20 22:15 99.8 F H 100 20 138/73 97 05/24/20 19:45 98 18 100/63 94 L 05/24/20 18:00 98.9 F 102 H 18 110/69 7 L 05/24/20 16:07 99 F 99 18 138/77 98 05/24/20 16:04 86 L 05/24/20 15:09 107 H 20 137/85 94 L 05/24/20 13:57 101.1 F H 115 H 18 123/73 97 Intake and Output 05/24/20 05/25/20 05/25/20 22:59 06:59 14:59 Intake Total 450 Balance 450 Intake: Oral 450 Other: # Voids 1 Weight 92.986 kg Results CBC & Chem 7: 05/24/20 14:42 05/24/20 14:42 Labs: Abnormal Lab Results - Last 24 Hours (Table) 05/24/20 05/24/20 05/24/20 Range/Units 14:42 14:42 14:42 WBC 3.3 L (3.8-10.6) k/uL Lymphocytes # 0.6 L (1.0-4.8) k/uL D-Dimer (<0.60) mg/L FEU Sodium 134 L (137-145) mmol/L Chloride 96 L (98-107) mmol/L Creatinine 1.11 H (0.52-1.04) mg/dL Glucose 109 H (74-99) mg/dL Ferritin 377.2 H (10.0-291.0) ng/mL AST 41 H (14-36) U/L Lactate Dehydrogenase 641 H (313-618) U/L Procalcitonin 0.10 H (0.02-0.09) ng/mL Coronavirus (PCR) (Not Detectd) 05/24/20 05/25/20 Range/Units 14:48 06:08 WBC (3.8-10.6) k/uL Lymphocytes # (1.0-4.8) k/uL D-Dimer 0.72 H (<0.60) mg/L FEU Sodium (137-145) mmol/L Chloride (98-107) mmol/L Creatinine (0.52-1.04) mg/dL Glucose (74-99) mg/dL Ferritin (10.0-291.0) ng/mL AST (14-36) U/L Lactate Dehydrogenase (313-618) U/L Procalcitonin (0.02-0.09) ng/mL Coronavirus (PCR) Detected A (Not Detectd) Thrombosis Risk Factor Assmnt - Choose All That Apply Any of the Below Risk Factors Present?: Yes Each Factor Represents 1 point: Serious lung disease incl. pneumonia (< 1month) Other Risk Factors: Yes Each Risk Factor Represents 2 Points: Age 61-74 years Other congenital or acquired thrombophilia - If yes, enter type in comment: No Thrombosis Risk Factor Assessment Total Risk Factor Score: 3 Thrombosis Risk Factor Assessment Level: Moderate Risk
[2020-05-26] MEDS: methylPREDNISolone SOD SUCCI 40 MG/ML 1 ML VIAL IV SCH ×3 (00:12→15:55)
[2020-05-26] MEDS: ALBUTEROL HFA INHALER INHALATION SCH ×4 (01:49→19:35)
[2020-05-26] MEDS: ENOXAPARIN 100 MG/ML SYRINGE SQ SCH ×2 (08:41→20:26)
[2020-05-26] MEDS: ASCORBIC ACID 500 MG TAB PO SCH (08:41)
[2020-05-26] MEDS: FAMOTIDINE 20 MG TAB PO SCH ×2 (08:41→20:26)
[2020-05-26] MEDS: CHOLECALCIFEROL 1,000 UNIT TAB PO SCH (08:41)
[2020-05-26] MEDS: ATORVASTATIN 10 MG TAB PO SCH (08:41)
[2020-05-26] MEDS ORDERED: ONDANSETRON 4 MG/2 ML VIAL IVP PRN (10:38)
[2020-05-26] MEDS: REMDESIVIR 100 MG in SODIUM CHLORIDE 0.9% 250 ML IVPB SCH (15:56)
--- NOTE | 2020-05-26 16:09 | P.PN ---
Subjective Progress Note Date: 05/26/20 HISTORY OF PRESENT ILLNESS This is a 70-year-old female patient who presented to the hospital on May 24 with complaints of cough, fever and difficulty in breathing, diagnosed with Covid 19 pneumonia. Patient was started on Remdesivir currently on day #2/5. The patient states that her shortness of breath is improving. She continues to have a cough. She continues to have nausea and decreased appetite. She also continues to have diarrhea, Questran added. PHYSICAL EXAMINATION Gen: This is an obese 70-year-old female. She is resting in bed appears to be comfortable. No respiratory distress noted. VS: Patient has been afebrile greater than 24 hours. Pulse ox is 95% on 3 L. Heart rate 88, blood pressure 120/66. HEENT: Head is atraumatic, normocephalic. Pupils equal, round. Sclerae is anicteric. LUNGS: Coarse breath sounds bilaterally. No intercostal retractions. HEART: Regular rate and rhythm. No murmur. ABDOMEN: Soft. Bowel sounds are present. No masses. No tenderness. EXTREMITIES: No pedal edema. No calf tenderness. No rash. NEUROLOGICAL: Patient is awake, alert and oriented x3. ASSESSMENT Covid 19 pneumonia Acute hypoxic respiratory failure Diarrhea secondary to Covid 19 PLAN Continue Remdesivir day number 2/5 Continue supplements with vitamin C, vitamin D Continue Solu-Medrol 40 mg IV every 8 hours Continue Lovenox Questran added for diarrhea Continue to monitor oxygenation closely The above dictated assessment and findings were discussed with Dr. Renteria. The impression and plan of care have been directed as dictated. Nicole Muro nurse practitioner acting as scribe for Dr. Renteria. Objective - Vital Signs Vital signs: Vital Signs Temp 98.4 F 05/26/20 05:00 Pulse 80 05/26/20 05:00 Resp 16 05/26/20 05:00 BP 97/57 05/26/20 05:00 Pulse Ox 95 05/26/20 05:00 Intake & Output 05/25/20 05/26/20 05/26/20 18:59 06:59 18:59 Intake Total 850 Balance 850 Intake: Oral 850 Other: Voiding Method Toilet # Voids 4 # Bowel Movements 1 - Labs CBC & Chem 7: 05/24/20 14:42 12/01/20 14:42 Labs: Microbiology - Last 24 Hours (Table) 05/24/20 14:42 Blood Culture - Preliminary Blood No Growth after 24 hours
[2020-05-26] MEDS: CHOLESTYRAMINE (WITH SUGAR) 4 GM PACKET PO SCH (18:23)
[2020-05-26] MEDS: ACETAMINOPHEN TAB 500 MG TAB PO PRN (20:26)
--- NOTE | 2020-05-26 22:02 | P.PN ---
Progress Note - Text Progress Note Date: 05/26/20 Chief Complaint: Short of breath History of presenting complaint: This is a pleasant 70-year-old patient of Dr. Sal Valdez. Chronic stable medical conditions include GERD, hypertension, hyperlipidemia. Patient about 5 days ago started off with slight cough progressive shortness of breath and started having fever and chills. No change in smell or taste. Nausea present. Decreased appetite. Tired rundown. Did go to see her family doctor for that she was transferred down here. Admitted with bilateral COVID 19 pneumonia, acute hypoxic respiratory failure, sepsis. Started on bronchodilators, IV Solu-Medrol, subcu Lovenox. Remdesivir. Today-no fever. A bit tired. Oral intake fair. Did sit up in a chair. Review of systems: Was done for constitutional, cardiovascular, GI, pulmonary. relevant finding as above Active Medications Acetaminophen (Acetaminophen Tab 500 Mg Tab) 1,000 mg PO Q6HR PRN PRN Reason: Fever>101 Last Admin: 05/26/20 20:26 Dose: 1,000 mg Documented by: Albuterol Sulfate (Albuterol Hfa Inhaler) 2 puff INHALATION RT-Q6H [facility] Last Admin: 05/26/20 19:35 Dose: 2 puff Documented by: Albuterol Sulfate (Albuterol Hfa Inhaler) 2 puff INHALATION RT-Q6H PRN PRN Reason: Shortness Of Breath Or Wheezing Ascorbic Acid (Ascorbic Acid 500 Mg Tab) 500 mg PO DAILY [facility] Last Admin: 05/26/20 08:41 Dose: 500 mg Documented by: Atorvastatin Calcium (Atorvastatin 10 Mg Tab) 10 mg PO DAILY [facility] Last Admin: 05/26/20 08:41 Dose: 10 mg Documented by: Cholecalciferol (Cholecalciferol 1,000 Unit Tab) 1,000 unit PO DAILY [facility] Last Admin: 05/26/20 08:41 Dose: 1,000 unit Documented by: Cholestyramine Resin (Cholestyramine (With Sugar) 4 Gm Packet) 4 gm PO BID@1000,1800 [facility] Last Admin: 05/26/20 18:23 Dose: 4 gm Documented by: Enoxaparin Sodium (Enoxaparin 100 Mg/Ml Syringe) 90 mg SQ Q12HR [facility] Last Admin: 05/26/20 20:26 Dose: 90 mg Documented by: Famotidine (Famotidine 20 Mg Tab) 20 mg PO BID [facility] Last Admin: 05/26/20 20:26 Dose: 20 mg Documented by: Remdesivir 100 mg/ Sodium (Chloride) 250 mls @ 250 mls/hr IVPB DAILY@1500 [facility] Stop: 05/29/20 15:59 Last Admin: 05/26/20 15:56 Dose: 250 mls/hr Documented by: Methylprednisolone Sodium Succinate (Methylprednisolone Sod Succi 40 Mg/Ml 1 Ml Vial) 40 mg IV Q8HR [facility] Last Admin: 05/26/20 15:55 Dose: 40 mg Documented by: Naloxone HCl (Naloxone 0.4 Mg/Ml 1 Ml Vial) 0.2 mg IV Q2M PRN PRN Reason: Opioid Reversal Ondansetron HCl (Ondansetron 4 Mg/2 Ml Vial) 4 mg IVP Q6HR PRN PRN Reason: Nausea And Vomiting Physical examination: VITAL SIGNS: Afebrile, 88, 20, 120/66, 95% on 3 L GENERAL: Laying in bed, awake PSYCH: [Alert and oriented x3; mood and affect anxious l. NEUROLOGICAL: Cranial nerves grossly intact; no facial asymmetry, moving all 4 limbs Rest of the exam as per ID and nursing INVESTIGATIONS, reviewed in the clinical context: White count 3.3 hemoglobin 15.1 platelets 224 lymphocytes decreased at 0.6 D-dimer 0.7 to potassium 3.5 creatinine 1.11 CRP 9.4 pro-calcitonin 0.10 Coronavirus P/Cr-detected Influenza type A type B both negative EKG tracing personally reviewed by me-normal sinus rhythm, incomplete right bundle branch block Chest x-ray film personally reviewed by me-prominent interstitium Assessment: -Bilateral COVID 19 pneumonia -Sepsis from COVID 19 pneumonia -Acute hypoxic respiratory failure from above -GERD -Hyperlipidemia -Essential hypertension -Obesity BMI 36.3 Plan: Continue Ventolin inhaler, ,, IV Solu-Medrol., Remdesivir. Follow with ID Care was discussed with the patient .
[2020-05-27] MEDS: methylPREDNISolone SOD SUCCI 40 MG/ML 1 ML VIAL IV SCH ×3 (00:17→20:59)
[2020-05-27] MEDS: ALBUTEROL HFA INHALER INHALATION SCH ×4 (01:46→19:58)
[2020-05-27] MEDS: ENOXAPARIN 100 MG/ML SYRINGE SQ SCH (09:27)
[2020-05-27] MEDS: ATORVASTATIN 10 MG TAB PO SCH (09:28)
[2020-05-27] MEDS: CHOLECALCIFEROL 1,000 UNIT TAB PO SCH (09:28)
[2020-05-27] MEDS: FAMOTIDINE 20 MG TAB PO SCH ×2 (09:28→20:58)
[2020-05-27] MEDS: ASCORBIC ACID 500 MG TAB PO SCH (09:28)
[2020-05-27] MEDS: CHOLESTYRAMINE (WITH SUGAR) 4 GM PACKET PO SCH ×2 (09:43→15:36)
[2020-05-27] MEDS: REMDESIVIR 100 MG in SODIUM CHLORIDE 0.9% 250 ML IVPB SCH (15:38)
--- NOTE | 2020-05-27 16:01 | P.PN ---
Subjective Progress Note Date: 05/27/20 HISTORY OF PRESENT ILLNESS This is a 70-year-old female patient who presented to the hospital on May 24 with complaints of cough, fever and difficulty in breathing, diagnosed with Covid 19 pneumonia. Patient was started on Remdesivir currently on day #2/5. The patient states that her shortness of breath is improving. She continues to have a cough. She continues to have nausea and decreased appetite. She also continues to have diarrhea, Questran added. 05/27: Patient states that she is feeling really well today. She is in ambulating without shortness of breath. No significant cough. She denies any chest pain. No nausea, vomiting, no abdominal pain, and no diarrhea. Patient has not required Questran for diarrhea. Patient is currently on day #3/5 for Remdesivir. She is also continued on Lovenox and Solu-Medrol. She has been afebrile, heart rate 76, blood pressure 124/75. Pulse ox 90-91% on room air. PHYSICAL EXAMINATION Gen: This is an obese 70-year-old female. She is resting in bed appears to be comfortable. No respiratory distress noted. VS: Patient has been afebrile greater than 24 hours. Pulse ox is 95% on 3 L. Heart rate 88, blood pressure 120/66. HEENT: Head is atraumatic, normocephalic. Pupils equal, round. Sclerae is anicteric. LUNGS: Coarse breath sounds bilaterally. No intercostal retractions. HEART: Regular rate and rhythm. No murmur. ABDOMEN: Soft. Bowel sounds are present. No masses. No tenderness. EXTREMITIES: No pedal edema. No calf tenderness. No rash. NEUROLOGICAL: Patient is awake, alert and oriented x3. ASSESSMENT Covid 19 pneumonia Acute hypoxic respiratory failure Diarrhea secondary to Covid 19, resolved PLAN Continue Remdesivir day number 3/5 Continue supplements with vitamin C, vitamin D Continue Solu-Medrol 40 mg IV decreased to every 12 hours Continue Lovenox decreased to 40 mg subcu daily Questran added for diarrhea Continue to monitor oxygenation closely The patient is cleared for discharge from infectious disease. Patient can be discharged on oral prednisone and supplements. Patient does not need complete course of Remdesivir. The above dictated assessment and findings were discussed with Dr. Renteria. The impression and plan of care have been directed as dictated. Nicole Muro nurse practitioner acting as scribe for Dr. Renteria. Objective - Vital Signs Vital signs: Vital Signs Temp 98.1 F 05/27/20 11:15 Pulse 76 05/27/20 11:15 Resp 20 05/27/20 11:15 BP 124/75 05/27/20 11:15 Pulse Ox 90 L 05/27/20 11:15 Intake & Output 05/26/20 05/27/20 05/27/20 18:59 06:59 18:59 Intake Total 850 240 Balance 850 240 Intake: Intake, IV Titration 250 Amount Remdesivir 100 mg In 250 Sodium Chloride 0.9% 250 ml @ 250 mls/hr IVPB DAILY@1500 [facility] Rx#: [id number] Oral 600 240 Other: # Voids 4 4 - Labs CBC & Chem 7: 05/24/20 14:42 05/24/20 14:42 Labs: Microbiology - Last 24 Hours (Table) 05/24/20 14:42 Blood Culture - Preliminary Blood No Growth after 48 hours
[2020-05-27] MEDS: ACETAMINOPHEN TAB 500 MG TAB PO PRN (20:58)
--- NOTE | 2020-05-27 22:57 | P.PN ---
Progress Note - Text Progress Note Date: 05/27/20 Chief Complaint: Short of breath History of presenting complaint: This is a pleasant 70-year-old patient of Dr. Sal Valdez. Chronic stable medical conditions include GERD, hypertension, hyperlipidemia. Patient about 5 days ago started off with slight cough progressive shortness of breath and started having fever and chills. No change in smell or taste. Nausea present. Decreased appetite. Tired rundown. Did go to see her family doctor for that she was transferred down here. Admitted with bilateral COVID 19 pneumonia, acute hypoxic respiratory failure, sepsis. Started on bronchodilators, IV Solu-Medrol, subcu Lovenox. Remdesivir. Today-feeling much better. Oral intake much improved. Breathing improved. Has been up in a chair. Review of systems: Was done for constitutional, cardiovascular, GI, pulmonary. relevant finding as above Active Medications Acetaminophen (Acetaminophen Tab 500 Mg Tab) 1,000 mg PO Q6HR PRN PRN Reason: Fever>101 Last Admin: 05/27/20 20:58 Dose: 1,000 mg Documented by: Albuterol Sulfate (Albuterol Hfa Inhaler) 2 puff INHALATION RT-Q6H [facility] Last Admin: 05/27/20 19:58 Dose: 2 puff Documented by: Albuterol Sulfate (Albuterol Hfa Inhaler) 2 puff INHALATION RT-Q6H PRN PRN Reason: Shortness Of Breath Or Wheezing Ascorbic Acid (Ascorbic Acid 500 Mg Tab) 500 mg PO DAILY [facility] Last Admin: 05/27/20 09:28 Dose: 500 mg Documented by: Atorvastatin Calcium (Atorvastatin 10 Mg Tab) 10 mg PO DAILY [facility] Last Admin: 05/27/20 09:28 Dose: Not Given Documented by: Cholecalciferol (Cholecalciferol 1,000 Unit Tab) 1,000 unit PO DAILY [facility] Last Admin: 05/27/20 09:28 Dose: 1,000 unit Documented by: Cholestyramine Resin (Cholestyramine (With Sugar) 4 Gm Packet) 4 gm PO BID@1000,1800 [facility] Last Admin: 05/27/20 15:36 Dose: Not Given Documented by: Enoxaparin Sodium (Enoxaparin 40 Mg/0.4 Ml Syringe) 40 mg SQ DAILY [facility] Famotidine (Famotidine 20 Mg Tab) 20 mg PO BID [facility] Last Admin: 05/27/20 20:58 Dose: 20 mg Documented by: Remdesivir 100 mg/ Sodium (Chloride) 250 mls @ 250 mls/hr IVPB DAILY@1500 [facility] Stop: 05/29/20 15:59 Last Admin: 05/27/20 15:38 Dose: 250 mls/hr Documented by: Methylprednisolone Sodium Succinate (Methylprednisolone Sod Succi 40 Mg/Ml 1 Ml Vial) 40 mg IV Q12HR [facility] Last Admin: 05/27/20 20:59 Dose: 40 mg Documented by: Naloxone HCl (Naloxone 0.4 Mg/Ml 1 Ml Vial) 0.2 mg IV Q2M PRN PRN Reason: Opioid Reversal Ondansetron HCl (Ondansetron 4 Mg/2 Ml Vial) 4 mg IVP Q6HR PRN PRN Reason: Nausea And Vomiting Physical examination: VITAL SIGNS: 98.1, 76, 20, 1 24 x 75, 90% on room air GENERAL: Sitting up, better PSYCH: [Alert and oriented x3; mood and affect normal. NEUROLOGICAL: Cranial nerves grossly intact; no facial asymmetry, moving all 4 limbs Rest of the exam as per ID and nursing INVESTIGATIONS, reviewed in the clinical context: May 27: D-dimer 0.27 CRP less than 5 White count 3.3 hemoglobin 15.1 platelets 224 lymphocytes decreased at 0.6 D-dimer 0.7 to potassium 3.5 creatinine 1.11 CRP 9.4 pro-calcitonin 0.10 Coronavirus P/Cr-detected Influenza type A type B both negative EKG tracing personally reviewed by me-normal sinus rhythm, incomplete right bundle branch block Chest x-ray film personally reviewed by me-prominent interstitium Assessment: -Bilateral COVID 19 pneumonia-improved -Sepsis from COVID 19 pneumonia improved -Acute hypoxic respiratory failure from above-improving -GERD -Hyperlipidemia -Essential hypertension -Obesity BMI 36.3 Plan: Continue Ventolin inhaler, ,, IV Solu-Medrol., Remdesivir. Improving.
[2020-05-28] MEDS: ALBUTEROL HFA INHALER INHALATION SCH ×4 (03:01→19:57)
[2020-05-28] MEDS: FAMOTIDINE 20 MG TAB PO SCH ×2 (08:15→21:21)
[2020-05-28] MEDS: CHOLECALCIFEROL 1,000 UNIT TAB PO SCH (08:16)
[2020-05-28] MEDS: ATORVASTATIN 10 MG TAB PO SCH (08:16)
[2020-05-28] MEDS: methylPREDNISolone SOD SUCCI 40 MG/ML 1 ML VIAL IV SCH ×2 (08:16→21:21)
[2020-05-28] MEDS: ENOXAPARIN 40 MG/0.4 ML SYRINGE SQ SCH (08:16)
[2020-05-28] MEDS: ASCORBIC ACID 500 MG TAB PO SCH (08:16)
[2020-05-28] MEDS: CHOLESTYRAMINE (WITH SUGAR) 4 GM PACKET PO SCH ×2 (08:18→17:18)
[2020-05-28] MEDS: REMDESIVIR 100 MG in SODIUM CHLORIDE 0.9% 250 ML IVPB SCH (15:42)
[2020-05-28] MEDS: ACETAMINOPHEN TAB 500 MG TAB PO PRN (22:03)
--- NOTE | 2020-05-28 22:35 | PN ---
PROGRESS NOTE DATE OF SERVICE: 05/28/2020 REASON FOR FOLLOWUP: Acute COVID-19 pneumonia. INTERVAL HISTORY: The patient is currently afebrile. The patient is feeling better. She is breathing comfortably, currently on room air. Denies having any chest pain. Minimal cough. No nausea, no vomiting. No abdominal pain or diarrhea. PHYSICAL EXAMINATION: Blood pressure 116/70 with a pulse of 69, temperature 98.6. She is 94% on room air. General description is an elderly female up in the room in no distress. Respiratory system: Unlabored breathing, decreased breath sounds. No wheeze or crackle. Heart S1, S2. Regular rate and rhythm. Abdomen soft, no tenderness. LABS: D-dimer is normal at 0.27. CRP has normalized. DIAGNOSTIC IMPRESSION AND PLAN: Patient with acute COVID-19 pneumonia. This patient did have clinical response to current treatment protocol. Patient's Solu-Medrol can be switched over to 10 day course of dexamethasone on discharge along with zinc and continue supportive care. MMODL / IJN: [id number] /
[2020-05-29] MEDS: ALBUTEROL HFA INHALER INHALATION SCH ×3 (04:28→13:22)
[2020-05-29] MEDS: CHOLESTYRAMINE (WITH SUGAR) 4 GM PACKET PO SCH (07:46)
[2020-05-29] MEDS: ASCORBIC ACID 500 MG TAB PO SCH (07:47)
[2020-05-29] MEDS: ATORVASTATIN 10 MG TAB PO SCH (07:47)
[2020-05-29] MEDS: CHOLECALCIFEROL 1,000 UNIT TAB PO SCH (07:47)
[2020-05-29] MEDS: FAMOTIDINE 20 MG TAB PO SCH (07:47)
[2020-05-29] MEDS: methylPREDNISolone SOD SUCCI 40 MG/ML 1 ML VIAL IV SCH (07:47)
[2020-05-29] MEDS: ENOXAPARIN 40 MG/0.4 ML SYRINGE SQ SCH (07:48)
--- NOTE | 2020-05-29 11:37 | P.PN ---
Progress Note - Text Progress Note Date: 05/28/20 Chief Complaint: Short of breath History of presenting complaint: This is a pleasant 70-year-old patient of Dr. Sal Valdez. Chronic stable medical conditions include GERD, hypertension, hyperlipidemia. Patient about 5 days ago started off with slight cough progressive shortness of breath and started having fever and chills. No change in smell or taste. Nausea present. Decreased appetite. Tired rundown. Did go to see her family doctor for that she was transferred down here. Admitted with bilateral COVID 19 pneumonia, acute hypoxic respiratory failure, sepsis. Started on bronchodilators, IV Solu-Medrol, subcu Lovenox. Remdesivir. Today-continues to feel better. Ambulating in the room. Oral intake much improved.Symptoms greatly improved. On Remdesivir.. Review of systems: Was done for constitutional, cardiovascular, GI, pulmonary. relevant finding as above Current medications reviewed in today's electronic records Physical examination: VITAL SIGNS: 98.3, 82, 19, 112/60, 94% on room air GENERAL: Sitting up, comfortable PSYCH: [Alert and oriented x3; mood and affect normal. NEUROLOGICAL: Cranial nerves grossly intact; no facial asymmetry, moving all 4 limbs Rest of the exam as per ID and nursing INVESTIGATIONS, reviewed in the clinical context: May 27: D-dimer 0.27 CRP less than 5 White count 3.3 hemoglobin 15.1 platelets 224 lymphocytes decreased at 0.6 D-dimer 0.7 to potassium 3.5 creatinine 1.11 CRP 9.4 pro-calcitonin 0.10 Coronavirus P/Cr-detected Influenza type A type B both negative EKG tracing personally reviewed by me-normal sinus rhythm, incomplete right bundle branch block Chest x-ray film personally reviewed by me-prominent interstitium Assessment: -Bilateral COVID 19 pneumonia-improved -Sepsis from COVID 19 pneumonia improved -Acute hypoxic respiratory failure from above-corrected -GERD -Hyperlipidemia -Essential hypertension -Obesity BMI 36.3 Plan: Continue current medication treatment plan. Much improved. Discussed with patient. Home tomorrow.
[2020-05-29 11:45] VITALS: BP 122/67; PULSE 77; RESP 17; TEMP 98.5
[2020-05-29] MEDS: REMDESIVIR 100 MG in SODIUM CHLORIDE 0.9% 250 ML IVPB SCH (14:43)
--- NOTE | 2020-05-29 17:54 | PN ---
PROGRESS NOTE DATE OF SERVICE: 05/29/2020 REASON FOR FOLLOWUP: Acute COVID-19 pneumonia. INTERVAL HISTORY: The patient is currently afebrile. The patient is feeling better. She is breathing comfortably on room air, currently 95%. Denies any chest pain or shortness. Minimal cough. No nausea, abdominal pain, no diarrhea. PHYSICAL EXAMINATION: Blood pressure 122/67, pulse of 77, temperature 98.5, she is 95% on room air. General description is an elderly female up in the chair in no distress. Respiratory system unlabored breathing, decreased breath sounds in the bases with no wheeze. HEART: S1, S2. Regular rate and rhythm. Abdomen is soft, no tenderness. LABS: D-dimer 0.27. CRP was . IMPRESSION/PLAN: Patient with acute COVID-19 pneumonia, adequately treated. The patient has completed her 5-day course Remdesivir. She will get a short course of prednisone on discharge and close outpatient followup. MMODL / IJN: [id number] /
--- NOTE | 2020-05-30 10:26 | P.DS ---
Providers Date of admission: 05/24/20 16:02 Expected date of discharge: 05/29/20 Attending physician: Fabio Conner Consults: 05/24/20 21:53 Consult Physician Routine Consulting Provider: Luh Renteria Consult Reason/Comments: covid Do you want consulting provider notified?: Yes Primary care physician: [facility] Course: Chief Complaint: Short of breath History of presenting complaint: This is a pleasant 70-year-old patient of Dr. Sal Valdez. Chronic stable medical conditions include GERD, hypertension, hyperlipidemia. Patient about 5 days ago started off with slight cough progressive shortness of breath and started having fever and chills. No change in smell or taste. Nausea present. Decreased appetite. Tired rundown. Did go to see her family doctor for that she was transferred down here. Admitted with bilateral COVID 19 pneumonia, acute hypoxic respiratory failure, sepsis. Started on bronchodilators, IV Solu-Medrol, subcu Lovenox. Remdesivir. Today-patient has done well. Up and about. Oral intake is good. No residual respiratory symptoms. Scuff with the patient. Questions answered.. COVID 19 DC instructions. Discussion and discharge planning more than 35 minutes Consultation: Dr. Victoria from ID Physical examination: VITAL SIGNS: 98.1, 71, 16, 122/67, 95% room air GENERAL: Sitting up, comfortable PSYCH: [Alert and oriented x3; mood and affect normal. NEUROLOGICAL: Cranial nerves grossly intact; no facial asymmetry, moving all 4 limbs Rest of the exam as per ID and nursing INVESTIGATIONS, reviewed in the clinical context: May 27: D-dimer 0.27 CRP less than 5 White count 3.3 hemoglobin 15.1 platelets 224 lymphocytes decreased at 0.6 D-dimer 0.7 to potassium 3.5 creatinine 1.11 CRP 9.4 pro-calcitonin 0.10 Coronavirus P/Cr-detected Influenza type A type B both negative EKG tracing personally reviewed by me-normal sinus rhythm, incomplete right bundle branch block Chest x-ray film personally reviewed by me-prominent interstitium Assessment: -Bilateral COVID 19 pneumonia, POA -Sepsis from COVID 19 pneumonia, POA -Acute hypoxic respiratory failure from above-corrected -GERD -Hyperlipidemia -Essential hypertension -Obesity BMI 36.3 Disposition: Home Patient Condition at Discharge: Stable Plan - Discharge Summary Discharge Rx Participant: No New Discharge Prescriptions: New Famotidine [Pepcid] 20 mg PO BID #60 tab predniSONE 0 mg PO DIRECTED #20 tab Ascorbic Acid [Vitamin C] 500 mg PO DAILY #30 tab Cholecalciferol [Vitamin D3 (25 Mcg = 1000 Iu)] 1,000 unit PO DAILY #30 tab Continue Atorvastatin Calcium [Lipitor] 10 mg PO DAILY Acetaminophen Tab [Tylenol] 1,000 mg PO Q6HR PRN PRN Reason: Pain Albuterol Sulfate [Ventolin HFA] 1 - 2 puff INHALATION RT-Q6H PRN PRN Reason: Shortness Of Breath Discontinued Spironolactone-Hctz 25-25Mg [Aldactazide 25-25Mg] 1 tab PO DAILY Discharge Medication List Atorvastatin Calcium [Lipitor] 10 mg PO DAILY 12/03/18 [History] Acetaminophen Tab [Tylenol] 1,000 mg PO Q6HR PRN 05/24/20 [History] Albuterol Sulfate [Ventolin HFA] 1 - 2 puff INHALATION RT-Q6H PRN 05/24/20 [History] Ascorbic Acid [Vitamin C] 500 mg PO DAILY #30 tab 05/29/20 [Rx] Cholecalciferol [Vitamin D3 (25 Mcg = 1000 Iu)] 1,000 unit PO DAILY #30 tab 05/29/20 [Rx] Famotidine [Pepcid] 20 mg PO BID #60 tab 05/29/20 [Rx] predniSONE 0 mg PO DIRECTED #20 tab 05/29/20 [Rx] Follow up Appointment(s)/Referral(s): Sal Valdez MD [Primary Care Provider] - 1 Week (please call for appointment, office closed today.) Patient Instructions/Handouts: Viral Pneumonia (DC), Hypoxia (ED) Activity/Diet/Wound Care/Special Instructions: covid 19 instructions Discharge Disposition: HOME SELF-CARE
== END 2020-05-29 16:27 | disposition home or self-care (01) | DRG 871 ==
LOC: EC 13:50 → 6NMEDSUR 16:02
PROVIDERS: ADMIT Hospitalist; ATTEND Hospitalist
PROC: XW033E5 Introduction of Remdesivir Anti-infective into Peripheral Vein, Percutaneous Approach, New Technology Group 5 (ICD-10-PCS; principal; 2020-05-25)
DX: A41.89 Other specified sepsis (principal); U07.1 COVID-19; J12.89 Other viral pneumonia; J96.01 Acute respiratory failure with hypoxia; E66.9 Obesity, unspecified; E78.5 Hyperlipidemia, unspecified; I10 Essential (primary) hypertension; K21.9 Gastro-esophageal reflux disease without esophagitis; I83.90 Asymptomatic varicose veins of unspecified lower extremity; R19.7 Diarrhea, unspecified; Z68.36 Body mass index [BMI] 36.0-36.9, adult; Z79.899 Other long term (current) drug therapy; Z86.73 Personal history of transient ischemic attack (TIA), and cerebral infarction without residual deficits; Z98.51 Tubal ligation status; Z88.5 Allergy status to narcotic agent; Z98.890 Other specified postprocedural states; Z87.19 Personal history of other diseases of the digestive system; Z87.39 Personal history of other diseases of the musculoskeletal system and connective tissue; Z80.9 Family history of malignant neoplasm, unspecified
CPT/HCPCS: 36415; 71045; 80053; 82728; 83605; 83615; 83735; 84145; 85025; 85379; 85610; 85730; 86140; 87040; 87502; 87635; 93005; 94640; 96361; 96372; 96374; 99285

== ENCOUNTER 2020-06-13 22:42 | Emergency (ER) | payer MEDICARE ==
[2020-06-13] MEDS ORDERED: ONDANSETRON 4 MG/2 ML VIAL IVP STA (22:57)
[2020-06-13] MEDS ORDERED: SODIUM CHLORIDE 0.9% 1,000 ML IV STA ×2 (22:57)
[2020-06-13] MEDS ORDERED: KETOROLAC 15 MG/ML 1 ML VIAL IVP STA (23:07)
[2020-06-13] MEDS ORDERED: ACETAMINOPHEN IV (For NPO) 1,000 MG in EMPTY BAG 1 BAG IVPB ONE (23:15)
[2020-06-13 23:17] LABS: Basophils # (A) 0.1 k/uL (0-0.2); Basophils % (A) 1 %; Eosinophils # (A) 0.4 k/uL (0-0.7); Eosinophils % (A) 3 %; HCT 43.8 % (34.0-46.0); HGB 14.9 gm/dL (11.4-16.0); Lymphocytes # (A) 1.1 k/uL (1.0-4.8); Lymphocytes % (A) 9 %; MCH 29.5 pg (25.0-35.0); MCHC 33.9 g/dL (31.0-37.0); MCV 86.9 fL (80.0-100.0); Monocytes # (A) 0.5 k/uL (0-1.0); Monocytes % (A) 4 %; Neutrophils # (A) 10.8 k/uL (1.3-7.7); Neutrophils % (A) 82 %; Platelet Count 198 k/uL (150-450); RBC 5.04 m/uL (3.80-5.40); RDW 13.4 % (11.5-15.5); WBC 13.1 k/uL (3.8-10.6)
[2020-06-13 23:28] LABS: Albumin 3.9 g/dL (3.5-5.0); C Reactive Protein 19.9 mg/L (<10.0); Magnesium 1.4 mg/dL (1.6-2.3); Phosphorus 4.1 mg/dL (2.5-4.5); Potassium 3.4 mmol/L (3.5-5.1); Total Bilirubin 1.2 mg/dL (0.2-1.3); Total Protein 7.1 g/dL (6.3-8.2)
--- NOTE | 2020-06-13 23:36 | ED ---
Nausea/Vomiting/Diarrhea HPI - General Chief complaint: Nausea/Vomiting/Diarrhea Stated complaint: Vomiting,ABD pain,Covid+ Time Seen by Provider: 06/13/20 22:53 Source: patient, RN notes reviewed, old records reviewed Mode of arrival: wheelchair Limitations: no limitations - History of Present Illness Initial comments: This 70-year-old female DF she presents today for evaluation for persistent nausea or vomiting. Patient has recent diagnosis of coronavirus did have abdominal pain with nausea vomiting earlier in the disease as well no significant shortness of breath or other complaints. No fevers. No other complaints aside from sudden onset of abdominal pain earlier today. Patient is feeling mildly improved on arrival to ER patient did have positive coronavirus 3 weeks ago MD complaint: nausea, vomiting -: days(s) Description of Vomiting: food contents, watery Description of Diarrhea: water Associated Abdominal Pain: Yes Location: diffuse Radiation: none Severity: moderate Severity scale (1-10): 4 Quality: cramping, aching Consistency: constant Improves with: none Worsens with: none Associated Symptoms: denies other symptoms - Related Data Home Medications Medication Instructions Recorded Confirmed Atorvastatin Calcium [Lipitor] 10 mg PO DAILY 12/03/18 06/13/20 Acetaminophen Tab [Tylenol] 1,000 mg PO Q6HR PRN 05/24/20 06/13/20 Albuterol Sulfate [Ventolin HFA] 1 - 2 puff INHALATION RT-Q6H PRN 05/24/20 06/13/20 Previous Rx's Medication Instructions Recorded Ascorbic Acid [Vitamin C] 500 mg PO DAILY #30 tab 05/29/20 Cholecalciferol [Vitamin D3 (25 1,000 unit PO DAILY #30 tab 05/29/20 Mcg = 1000 Iu)] Famotidine [Pepcid] 20 mg PO BID #60 tab 05/29/20 Allergies Allergy/AdvReac Type Severity Reaction Status Date / Time narcotics Allergy Unknown Uncoded 06/13/20 23:35 Review of Systems ROS Statement: Those systems with pertinent positive or pertinent negative responses have been documented in the HPI. ROS Other: All systems not noted in ROS Statement are negative. Past Medical History Past Medical History: CVA/TIA, GERD/Reflux, Hyperlipidemia, Hypertension Additional Past Medical History / Comment(s): TIA 10 yrs ago. Sinus problems. Varicose veins. 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 Past Anesthesia/Blood Transfusion Reactions: Family History of Problems w/ Anesthesia, Postoperative Nausea & Vomiting (PONV) Additional Past Anesthesia/Blood Transfusion Reaction / Comment(s): Difficulty waking up. Mom had difficulty waking up and PONV. Past Psychological History: No Psychological Hx Reported Smoking Status: Never smoker Past Alcohol Use History: None Reported Past Drug Use History: None Reported - Past Family History Father Family Medical History: Cancer General Exam Limitations: no limitations General appearance: alert, in no apparent distress Head exam: Present: atraumatic, normocephalic, normal inspection Eye exam: Present: normal appearance, PERRL, EOMI. Absent: scleral icterus, conjunctival injection, periorbital swelling ENT exam: Present: normal exam, mucous membranes moist Neck exam: Present: normal inspection. Absent: tenderness, meningismus, lymphadenopathy Respiratory exam: Present: normal lung sounds bilaterally. Absent: respiratory distress, wheezes, rales, rhonchi, stridor Cardiovascular Exam: Present: normal rhythm, tachycardia, normal heart sounds. Absent: systolic murmur, diastolic murmur, rubs, gallop, clicks GI/Abdominal exam: Present: soft, normal bowel sounds. Absent: distended, tenderness, guarding, rebound, rigid Extremities exam: Present: normal inspection, full ROM, normal capillary refill. Absent: tenderness, pedal edema, joint swelling, calf tenderness Back exam: Present: normal inspection Neurological exam: Present: alert, oriented X3, CN II-XII intact Psychiatric exam: Present: normal affect, normal mood Skin exam: Present: warm, dry, intact, normal color. Absent: rash Course Vital Signs 06/13/20 06/14/20 22:46 00:43 Temperature 98.8 F Pulse Rate 130 H 79 Respiratory 24 18 Rate Blood Pressure 123/71 141/86 O2 Sat by Pulse 97 97 Oximetry - Reevaluation(s) Reevaluation #1: 06/14/20 00:49 Record is reviewed Reevaluation #2: 06/14/20 00:49 Patient has pain control Reevaluation #3: 06/14/20 01:38 Patient again continues to feel improved prefers discharge Medical Decision Making - Medical Decision Making 70 female the ER 3 weeks post Kovic virus coming in for severe abdominal pain and bloating. Symptoms are resolved here in the ER feeling better and okay for discharge - Lab Data Result diagrams: 06/13/20 22:57 06/13/20 22:57 Lab Results 06/13/20 06/13/20 06/13/20 Range/Units 22:57 22:57 22:57 WBC 13.1 H (3.8-10.6) k/uL RBC 5.04 (3.80-5.40) m/uL Hgb 14.9 (11.4-16.0) gm/dL Hct 43.8 (34.0-46.0) % MCV 86.9 (80.0-100.0) fL MCH 29.5 (25.0-35.0) pg MCHC 33.9 (31.0-37.0) g/dL RDW 13.4 (11.5-15.5) % Plt Count 198 (150-450) k/uL MPV 8.0 Neutrophils % 82 % Lymphocytes % 9 % Monocytes % 4 % Eosinophils % 3 % Basophils % 1 % Neutrophils # 10.8 H (1.3-7.7) k/uL Lymphocytes # 1.1 (1.0-4.8) k/uL Monocytes # 0.5 (0-1.0) k/uL Eosinophils # 0.4 (0-0.7) k/uL Basophils # 0.1 (0-0.2) k/uL PT 9.4 (9.0-12.0) sec INR 0.9 (<1.2) APTT 23.4 (22.0-30.0) sec Sodium 137 (137-145) mmol/L Potassium 3.4 L (3.5-5.1) mmol/L Chloride 100 (98-107) mmol/L Carbon Dioxide 28 (22-30) mmol/L Anion Gap 9 mmol/L BUN 21 H (7-17) mg/dL Creatinine 1.11 H (0.52-1.04) mg/dL Est GFR (CKD-EPI)AfAm 58 (>60 ml/min/1.73 sqM) Est GFR (CKD-EPI)NonAf 51 (>60 ml/min/1.73 sqM) Glucose 123 H (74-99) mg/dL Plasma Lactic Acid Roman (0.7-2.0) mmol/L Calcium 9.0 (8.4-10.2) mg/dL Phosphorus 4.1 (2.5-4.5) mg/dL Magnesium 1.4 L (1.6-2.3) mg/dL Total Bilirubin 1.2 (0.2-1.3) mg/dL AST 23 (14-36) U/L ALT 27 (4-34) U/L Alkaline Phosphatase 71 (38-126) U/L Lactate Dehydrogenase 659 H (313-618) U/L Troponin I (0.000-0.034) ng/mL C-Reactive Protein 19.9 H (<10.0) mg/L Total Protein 7.1 (6.3-8.2) g/dL Albumin 3.9 (3.5-5.0) g/dL 06/13/20 06/13/20 Range/Units 22:57 22:57 WBC (3.8-10.6) k/uL RBC (3.80-5.40) m/uL Hgb (11.4-16.0) gm/dL Hct (34.0-46.0) % MCV (80.0-100.0) fL MCH (25.0-35.0) pg MCHC (31.0-37.0) g/dL RDW (11.5-15.5) % Plt Count (150-450) k/uL MPV Neutrophils % % Lymphocytes % % Monocytes % % Eosinophils % % Basophils % % Neutrophils # (1.3-7.7) k/uL Lymphocytes # (1.0-4.8) k/uL Monocytes # (0-1.0) k/uL Eosinophils # (0-0.7) k/uL Basophils # (0-0.2) k/uL PT (9.0-12.0) sec INR (<1.2) APTT (22.0-30.0) sec Sodium (137-145) mmol/L Potassium (3.5-5.1) mmol/L Chloride (98-107) mmol/L Carbon Dioxide (22-30) mmol/L Anion Gap mmol/L BUN (7-17) mg/dL Creatinine (0.52-1.04) mg/dL Est GFR (CKD-EPI)AfAm (>60 ml/min/1.73 sqM) Est GFR (CKD-EPI)NonAf (>60 ml/min/1.73 sqM) Glucose (74-99) mg/dL Plasma Lactic Acid Roman 1.7 (0.7-2.0) mmol/L Calcium (8.4-10.2) mg/dL Phosphorus (2.5-4.5) mg/dL Magnesium (1.6-2.3) mg/dL Total Bilirubin (0.2-1.3) mg/dL AST (14-36) U/L ALT (4-34) U/L Alkaline Phosphatase (38-126) U/L Lactate Dehydrogenase (313-618) U/L Troponin I <0.012 (0.000-0.034) ng/mL C-Reactive Protein (<10.0) mg/L Total Protein (6.3-8.2) g/dL Albumin (3.5-5.0) g/dL - EKG Data -: EKG Interpreted by Me (EKG shows sinus tachycardia 114 by mouth 134 QRS 112 QTc 460) - Radiology Data Radiology results: report reviewed (X-ray abdominal series and chest is negative for acute disease as well as CT abd pelvis ileus), image reviewed Disposition Clinical Impression: Dehydration, Gastroenteritis Disposition: HOME SELF-CARE Condition: Good Instructions (If sedation given, give patient instructions): Acute Nausea and Vomiting (ED) Is patient prescribed a controlled substance at d/c from ED?: No Referrals: Sal Valdez MD [Primary Care Provider] - 1-2 days
--- NOTE | 2020-06-13 23:51 | XR ---
EXAMINATION TYPE: XR abdomen acute w cxr DATE OF EXAM: 06/13/2020 COMPARISON: Chest x-ray 05/24/2020 HISTORY: Weakness TECHNIQUE: 4 views FINDINGS: There is some coarsening of interstitial markings in the lower lung henry. There is no hea rt failure. Heart size is normal. There is no sign of intestinal obstruction or pneumoperitoneum. Fecal pattern is normal. No evidence of a mass. There are no pathologic calcifications over the kidneys. IMPRESSION: Interstitial fibrotic changes at the lung bases unchanged compared to recent exam. No hea rt failure. Nonacute abdomen.
[2020-06-13 23:58] LABS: INR 0.9 (<1.2); Partial Thromboplastin Time 23.4 sec (22.0-30.0); Prothrombin Time 9.4 sec (9.0-12.0)
[2020-06-14] MEDS ORDERED: SODIUM CHLORIDE 0.9% 1,000 ML IV STA (00:30)
[2020-06-14 00:44] VITALS: PULSE 79; RESP 18
--- NOTE | 2020-06-14 01:15 | CT ---
EXAM: CT Abdomen and Pelvis With Intravenous Contrast CLINICAL HISTORY: ITS.REASON CT Reason: pain TECHNIQUE: Axial computed tomography images of the abdomen and pelvis with intravenous contrast. CTDI is 35.87 mGy and DLP is 1602.4 mGy-cm. This CT exam was performed using one or more of the following dose reduction techniques: automated exposure control, adjustment of the mA and/or kV according to patient size, and/or use of iterative reconstruction technique. COMPARISON: No relevant prior studies available. FINDINGS: Lung bases: Not scattered linear densities are seen in both lung bases which may represent fibrosis or interstitial pneumonitis. ABDOMEN: Liver: The liver is mildly fatty infiltrated and enlarged measuring 18. 5 cm craniocaudad. No focal liver lesion is seen. Gallbladder and bile ducts: Unremarkable. No calcified stones. No ductal dilation. Pancreas: Unremarkable. No mass. No ductal dilation. Spleen: Unremarkable. No splenomegaly. Adrenals: Unremarkable. No mass. Kidneys and ureters: There is a 6 cm simple cyst in the mid right kidney. No follow-up is recommended. No hydronephrosis is seen involving either kidney. Stomach and bowel: There are gas fluid levels in fluid-filled nondilated large and small bowel suggesting ileus. There is diverticulosis of the sigmoid colon. No focal inflammation is seen to indicate acute diverticulitis at this time. PELVIS: Appendix: No findings to suggest acute appendicitis. Bladder: Unremarkable. No mass. Reproductive: Unremarkable as visualized. ABDOMEN and PELVIS: Intraperitoneal space: Unremarkable. No free air. No significant fluid collection. Bones/joints: No acute fracture. No dislocation. Soft tissues: Unremarkable. Vasculature: Unremarkable. No abdominal aortic aneurysm. Lymph nodes: Unremarkable. No enlarged lymph nodes. IMPRESSION: 1. Not scattered linear densities are seen in both lung bases which may represent fibrosis or interstitial pneumonitis. 2. There are gas fluid levels in fluid-filled nondilated large and small bowel suggesting ileus. There is diverticulosis of the sigmoid colon. No focal inflammation is seen to indicate acute diverticulitis at this time.
[2020-06-14] MEDS ORDERED: METOCLOPRAMIDE 5 MG/ML 2 ML VIAL IVP STA (01:29)
[2020-06-14] MEDS ORDERED: MAGNESIUM SULFATE-D5W PMX 1 GM in DEXTROSE/WATER 1 100ML.BAG IVPB ONE (01:30)
[2020-06-14] MEDS ORDERED: MAGNESIUM OXIDE 400 MG TAB PO STA (01:30)
[2020-06-14 02:12] LABS: Appearance,Urine Clear (Clear); Bacteria,Urine Rare /hpf; Bilirubin,Urine Negative (Negative); Blood,Urine Negative (Negative); Color,Urine Light Yellow; Glucose,Urine (UA) Negative (Negative); Ketones,Urine Negative (Negative); Leukocyte Esterase,Urine Moderate (Negative); Mucus,Urine Rare /hpf; Nitrite,Urine Positive (Negative); Protein,Urine Negative (Negative); RBC,Urine 1 /hpf (0-5); Specific Gravity,Urine 1.035 (1.001-1.035); Squamous Epithelial Cell,Urine <1 /hpf (0-4); Urobilinogen,Urine <2.0 mg/dL (<2.0); WBC,Urine 33 /hpf (0-5)
[2020-06-14 02:45] VITALS: BP 140/84; TEMP 98.3
== END 2020-06-14 02:46 | disposition home or self-care (01) ==
LOC: EC 22:42
DX: E86.0 Dehydration (principal); K52.9 Noninfective gastroenteritis and colitis, unspecified; E78.5 Hyperlipidemia, unspecified; I10 Essential (primary) hypertension; Z79.899 Other long term (current) drug therapy; Z86.73 Personal history of transient ischemic attack (TIA), and cerebral infarction without residual deficits; Z88.5 Allergy status to narcotic agent; Z86.19 Personal history of other infectious and parasitic diseases; Z98.890 Other specified postprocedural states
CPT/HCPCS: 36415 ×2; 93005; 80053; 83605; 83615; 83690; 83735; 84100; 84484; 85025; 85610; 85730; 86140; 81001; 87086; 74022; 74177; 99285; 96365; 96367; 96375 ×3; 96361 ×2; J2765; J2405; J3475; J0131; J1885; Q9967

== ENCOUNTER → 2020-08-23 | Outpatient (CLI) | payer MEDICARE ==
--- NOTE | 2020-08-23 16:22 | US ---
EXAMINATION TYPE: US thyroid st tissue head/neck DATE OF EXAM: 08/23/2020 COMPARISON: NONE CLINICAL HISTORY: E04.1 thyroid nodule. Pt states abnormal thyroid on CT at outside facility ([facility] ) GLAND SIZE: Right Lobe: 6.6 x 2.7 x 3.2 cm Overall Parenchyma: heterogenous Left Lobe: 7.1 x 2.6 x 2.0 cm Overall Parenchyma: heterogeneous Isthmus Thickness: 0.3 cm Bilateral neck scanned, no evidence of lymphadenopathy. Bilateral, enlarged, heterogeneous thyroid. IMPRESSION: Thyromegaly with a heterogenous appearance. Discrete nodules not identified. Monitoring by ultrasound is recommended.
--- NOTE | 2020-08-23 16:42 | US ---
EXAMINATION TYPE: US venous doppler duplex LE RT DATE OF EXAM: 08/23/2020 2:38 PM COMPARISON: NONE CLINICAL HISTORY: M79.661 PAIN IN RT LOWER LEG. Pt states pain in right leg SIDE PERFORMED: Right TECHNIQUE: The lower extremity deep venous system is examined utilizing real time linear array sonog aleks with graded compression, doppler sonography and color-flow sonography. VESSELS IMAGED: Common Femoral Vein Deep Femoral Vein Greater Saphenous Vein * Femoral Vein Popliteal Vein Small Saphenous Vein * Proximal Calf Veins (* superficial vessels) Right Leg: Negative for DVT IMPRESSION: 1. Right lower extremity ultrasound negative for deep venous thrombosis.
== END | disposition home or self-care (01) ==
LOC: RADUSWWP 14:07
PROVIDERS: ATTEND Internal Medicine
DX: E01.0 Iodine-deficiency related diffuse (endemic) goiter (principal); M79.661 Pain in right lower leg
CPT/HCPCS: 76536

== ENCOUNTER → 2020-11-29 | Outpatient (CLI) | payer MEDICARE ==
--- NOTE | 2020-12-01 09:01 | MM ---
Reason for exam: screening (asymptomatic). Last mammogram was performed 3 years and 1 month ago. History: Patient is postmenopausal. Family history of breast cancer in grandmother at age 75. Physical Findings: A clinical breast exam by your physician is recommended on an annual basis and results should be correlated with mammographic findings. MG 3D Screening Mammo W/Cad Bilateral CC and MLO view(s) were taken. Prior study comparison: October 30, 2017, bilateral MG 3d screening mammo w/cad. April 12, 2014, bilateral MG screening mammo w CAD. There is chronic nodularity in the left breast. Focal asymmetry right upper outer quadrant is stable. No significant changes when compared with prior studies. ASSESSMENT: Benign, BI-RAD 2 RECOMMENDATION: Routine screening mammogram of both breasts in 1 year.
== END | disposition home or self-care (01) ==
LOC: RADMAMWWP 14:28
PROVIDERS: ATTEND Family Medicine
DX: Z12.31 Encounter for screening mammogram for malignant neoplasm of breast (principal); Z80.3 Family history of malignant neoplasm of breast; Z78.0 Asymptomatic menopausal state
CPT/HCPCS: 77063; 77067

== ENCOUNTER → 2021-04-04 | Outpatient (CLI) | payer MEDICARE ==
--- NOTE | 2021-04-04 13:33 | US ---
EXAMINATION TYPE: US thyroid st tissue head/neck DATE OF EXAM: 04/04/2021 COMPARISON: us 08/23/2020 CLINICAL HISTORY: R93.89 abnormal findings on diagnostic imaging of. GLAND SIZE: Right Lobe: 5.9 x 2.3 x 3.7 cm Overall Parenchyma: heterogenous Left Lobe: 6.4 x 2.0 x 2.0 cm Overall Parenchyma: heterogeneous Isthmus Thickness: 0.2 cm NODULES RIGHT: # of nodules measured on right: 0 LEFT: # of nodules measured on left: 0 ISTHMUS: # of nodules measured in the isthmus: 0 Bilateral neck scanned, no evidence of lymphadenopathy. IMPRESSION: Thyromegaly with findings suggestive of thyroiditis and no discrete thyroid nodule. 2017 ACR TI-RADS LEVEL: TR-RADS 1 - BENIGN: No FNA *Highest TI-RADS level nodule reported
== END | disposition home or self-care (01) ==
LOC: RADUSWWP 12:47
PROVIDERS: ATTEND Family Medicine
DX: R93.89 Abnormal findings on diagnostic imaging of other specified body structures (principal); E01.0 Iodine-deficiency related diffuse (endemic) goiter
CPT/HCPCS: 76536

== ENCOUNTER 2021-12-21 09:40 | Observation (INO) | payer MEDICARE ==
[2021-12-21] MEDS ORDERED: SODIUM CHLORIDE 0.9% 1,000 ML IV STA (09:57)
[2021-12-21 10:02] LABS: Glucose,Whole Blood 121 mg/dL (70-110)
--- NOTE | 2021-12-21 10:10 | ED ---
Neuro HPI - General Chief Complaint: Neuro Symptoms/Deficit Stated Complaint: Stroke Time Seen by Provider: 12/21/21 09:49 Source: patient, family, RN notes reviewed Mode of arrival: ambulatory Limitations: no limitations - History of Present Illness Is the patient presenting with stroke symptoms?: Yes Last Known Well Date: 12/20/21 Last Known Well Time: 23:00 Initial Comments: 71-year-old female with a prior history of CVA/TIA over 10 years ago who last known well time was 11 to 12:00 PM last evening she woke up this morning with difficulty with speech not remembering what day it was. This is around 5 AM. She also complains of a headache she was slow to respond her . She seemed to have no focal deficits with respect to extremities. No reports of trauma no reports of fevers chills nausea vomiting sweats or other symptoms. - Related Data Home Medications: Home Medications Medication Instructions Recorded Confirmed Atorvastatin Calcium [Lipitor] 10 mg PO DAILY 12/03/18 12/21/21 Aspirin EC [Ecotrin] 650 mg PO DAILY PRN 12/21/21 12/21/21 Spironolactone-Hctz 25-25Mg 1 tab PO DAILY 12/21/21 12/21/21 [Aldactazide 25-25Mg] Allergies/Adverse Reactions: Allergies Allergy/AdvReac Type Severity Reaction Status Date / Time narcotics Allergy Unknown Uncoded 12/21/21 10:27 Review of Systems ROS Statement: Those systems with pertinent positive or pertinent negative responses have been documented in the HPI. ROS Other: All systems not noted in ROS Statement are negative. General Exam - General Exam Comments Initial Comments: This a well-developed well-nourished awake alert female demonstrate some evidence of expressive and possibly receptive aphasia Limitations: no limitations General appearance: alert, anxious Head exam: Present: atraumatic, normocephalic, normal inspection Eye exam: Present: normal appearance, PERRL, EOMI. Absent: scleral icterus, conjunctival injection, periorbital swelling ENT exam: Present: normal exam, mucous membranes moist Neck exam: Present: normal inspection, full ROM, other (No stridor JVD or bruits). Absent: tenderness, meningismus, lymphadenopathy Respiratory exam: Present: normal lung sounds bilaterally. Absent: respiratory distress, wheezes, rales, rhonchi, stridor Cardiovascular Exam: Present: regular rate, normal rhythm, normal heart sounds. Absent: systolic murmur, diastolic murmur, rubs, gallop, clicks GI/Abdominal exam: Present: soft, normal bowel sounds. Absent: distended, tenderness, guarding, rebound, rigid Extremities exam: Present: normal inspection, full ROM, normal capillary refill. Absent: tenderness, pedal edema, joint swelling, calf tenderness Back exam: Present: normal inspection Neurological exam: Present: alert, altered, CN II-XII intact Psychiatric exam: Present: normal affect, anxious Skin exam: Present: warm, dry, intact, normal color. Absent: rash Stroke MDM - Lab Data Result diagrams: 12/21/21 10:12/21/21 10:01 Lab Results 12/21/21 12/21/21 12/21/21 Range/Units 10:01 10:01 10:01 WBC 8.0 (3.8-10.6) k/uL RBC 5.25 (3.80-5.40) m/uL Hgb 15.7 (11.4-16.0) gm/dL Hct 47.3 H (34.0-46.0) % MCV 90.2 (80.0-100.0) fL MCH 29.9 (25.0-35.0) pg MCHC 33.2 (31.0-37.0) g/dL RDW 12.6 (11.5-15.5) % Plt Count 334 (150-450) k/uL MPV 8.0 Neutrophils % 73 % Lymphocytes % 15 % Monocytes % 5 % Eosinophils % 3 % Basophils % 2 % Neutrophils # 5.8 (1.3-7.7) k/uL Lymphocytes # 1.2 (1.0-4.8) k/uL Monocytes # 0.4 (0-1.0) k/uL Eosinophils # 0.3 (0-0.7) k/uL Basophils # 0.1 (0-0.2) k/uL PT 10.1 (9.0-12.0) sec INR 0.9 (<1.2) APTT 24.9 (22.0-30.0) sec Sodium 139 (137-145) mmol/L Potassium 3.7 (3.5-5.1) mmol/L Chloride 100 (98-107) mmol/L Carbon Dioxide 28 (22-30) mmol/L Anion Gap 11 mmol/L BUN 17 (7-17) mg/dL Creatinine 1.19 H (0.52-1.04) mg/dL Est GFR (CKD-EPI)AfAm 53 (>60 ml/min/1.73 sqM) Est GFR (CKD-EPI)NonAf 46 (>60 ml/min/1.73 sqM) Glucose 111 H (74-99) mg/dL POC Glucose (mg/dL) (70-110) mg/dL POC Glu Software Programmer ID Calcium 9.9 (8.4-10.2) mg/dL Magnesium 1.7 (1.6-2.3) mg/dL Total Bilirubin 1.1 (0.2-1.3) mg/dL AST 27 (14-36) U/L ALT 23 (4-34) U/L Alkaline Phosphatase 75 (38-126) U/L Troponin I (0.000-0.034) ng/mL Total Protein 7.4 (6.3-8.2) g/dL Albumin 4.6 (3.5-5.0) g/dL 12/21/21 12/21/21 Range/Units 10:01 10:01 WBC (3.8-10.6) k/uL RBC (3.80-5.40) m/uL Hgb (11.4-16.0) gm/dL Hct (34.0-46.0) % MCV (80.0-100.0) fL MCH (25.0-35.0) pg MCHC (31.0-37.0) g/dL RDW (11.5-15.5) % Plt Count (150-450) k/uL MPV Neutrophils % % Lymphocytes % % Monocytes % % Eosinophils % % Basophils % % Neutrophils # (1.3-7.7) k/uL Lymphocytes # (1.0-4.8) k/uL Monocytes # (0-1.0) k/uL Eosinophils # (0-0.7) k/uL Basophils # (0-0.2) k/uL PT (9.0-12.0) sec INR (<1.2) APTT (22.0-30.0) sec Sodium (137-145) mmol/L Potassium (3.5-5.1) mmol/L Chloride (98-107) mmol/L Carbon Dioxide (22-30) mmol/L Anion Gap mmol/L BUN (7-17) mg/dL Creatinine (0.52-1.04) mg/dL Est GFR (CKD-EPI)AfAm (>60 ml/min/1.73 sqM) Est GFR (CKD-EPI)NonAf (>60 ml/min/1.73 sqM) Glucose (74-99) mg/dL POC Glucose (mg/dL) 121 H (70-110) mg/dL POC Glu Software Programmer ID Cristi Vizcaino Calcium (8.4-10.2) mg/dL Magnesium (1.6-2.3) mg/dL Total Bilirubin (0.2-1.3) mg/dL AST (14-36) U/L ALT (4-34) U/L Alkaline Phosphatase (38-126) U/L Troponin I <0.012 (0.000-0.034) ng/mL Total Protein (6.3-8.2) g/dL Albumin (3.5-5.0) g/dL - NIH Stroke Scale 1a. Level of Consciousness: (0) alert 1b. LOC Questions: (1) answers 1 question correctly 2. Best Gaze: (0) normal 3. Visual: (0) no visual loss 4. Facial Palsy: (0) normal symmetrical movement 5a. Motor Arm Left: (0) no drift 5b. Motor Arm Right: (0) no drift 6a. Motor Leg Left: (0) no drift 6b. Motor Leg Right: (0) no drift 7. Limb Ataxia: (0) absent 8. Sensory: (0) normal 9. Best Language: (1) mild/moderate aphasia 10. Dysarthria: (0) normal 11. Extinction/Inattention: (0) no abnormality - Thrombolytic Inclusion/Exclusion Thrombolytic Exclusion Criteria: Symptom Onset > 4.5 Hours - Medical Decision Making Patient has improved. The symptoms appeared be consistent with TIA patient will be admitted with neurological consultation. - EKG Data -: EKG Interpreted by Me EKG shows normal: sinus rhythm (Sinus rhythm of 82. Interval 151 QRS duration 114 QT since QTC 375/413 incomplete right bundle-branch block) Past Medical History Past Medical History: CVA/TIA, GERD/Reflux, Hyperlipidemia, Hypertension Additional Past Medical History / Comment(s): TIA 10 yrs ago. Sinus problems. Varicose veins. 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 Past Anesthesia/Blood Transfusion Reactions: Family History of Problems w/ Anesthesia, Postoperative Nausea & Vomiting (PONV) Additional Past Anesthesia/Blood Transfusion Reaction / Comment(s): Difficulty waking up. Mom had difficulty waking up and PONV. Past Psychological History: No Psychological Hx Reported Smoking Status: Never smoker Past Alcohol Use History: None Reported Past Drug Use History: None Reported - Past Family History Father Family Medical History: Cancer Course Vital Signs 12/21/21 12/21/21 09:41 11:15 Temperature 98.2 F Pulse Rate 104 H 64 Respiratory 20 17 Rate Blood Pressure 155/83 133/82 O2 Sat by Pulse 100 98 Oximetry - Reevaluation(s) Reevaluation #1: 12/21/21 13:05 Patient was a code stroke and did discuss case with Dr. Ybarra patient is not a candidate at this time for TPA. CTs were negative for acute processes the patient is improving. She is able to phonate now without difficulty. Patient be admitted. I did discuss the case with Dr. Jaime. Dr. Whaley will be consulted Critical Care Time Critical Care Time: Yes Total Critical Care Time: 39 Critical Care Time: Critical care time includes initial presentation with history physical labs x- rays multiple reevaluation the patient is multiple discussions with the patient family discuss with the admitting physician admission orders and documentation of the above Disposition Clinical Impression: Transient cerebral ischemia Disposition: ADMITTED IP TO THIS HOSP Condition: Stable Referrals: Leah Chaparro MD [Primary Care Provider] - 1-2 days Decision Date: 12/21/21 Decision Time: 12:00
[2021-12-21 10:12] LABS: Basophils # (A) 0.1 k/uL (0-0.2); Basophils % (A) 2 %; Eosinophils # (A) 0.3 k/uL (0-0.7); Eosinophils % (A) 3 %; HCT 47.3 % (34.0-46.0); HGB 15.7 gm/dL (11.4-16.0); Lymphocytes # (A) 1.2 k/uL (1.0-4.8); Lymphocytes % (A) 15 %; MCH 29.9 pg (25.0-35.0); MCHC 33.2 g/dL (31.0-37.0); MCV 90.2 fL (80.0-100.0); Monocytes # (A) 0.4 k/uL (0-1.0); Monocytes % (A) 5 %; Neutrophils # (A) 5.8 k/uL (1.3-7.7); Neutrophils % (A) 73 %; Platelet Count 334 k/uL (150-450); RBC 5.25 m/uL (3.80-5.40); RDW 12.6 % (11.5-15.5)
[2021-12-21 10:20] LABS: INR 0.9 (<1.2); Partial Thromboplastin Time 24.9 sec (22.0-30.0); Prothrombin Time 10.1 sec (9.0-12.0)
[2021-12-21 10:21] LABS: Albumin 4.6 g/dL (3.5-5.0); Calcium 9.9 mg/dL (8.4-10.2); Magnesium 1.7 mg/dL (1.6-2.3); Potassium 3.7 mmol/L (3.5-5.1); Total Bilirubin 1.1 mg/dL (0.2-1.3); Total Protein 7.4 g/dL (6.3-8.2)
--- NOTE | 2021-12-21 10:25 | CT ---
EXAMINATION TYPE: CT brain wo con for TPA DATE OF EXAM: 12/21/2021 COMPARISON: CT dated 02/15/2013 HISTORY: Neuro deficits, cannot remember things CT DLP: 1066.6 mGycm Automated exposure control for dose reduction was used. TECHNIQUE: CT scan of the brain is performed without IV contrast administration. FINDINGS: Ballooning of the sella turcica with a partial empty sella. No acute intracranial hemorrhage. No mike s acute cortical infarct. No midline shift, herniation or ventriculomegaly. Unremarkable mina-white matter differentiation, basal cisterns and CP angles. No gross space-occupyin g lesion, vasogenic edema or mass effect. Unremarkable orbits. Mucosal thickening of the maxillary sinuses. Clear mastoid air cells. Osteopenia . IMPRESSION: No acute intracranial hemorrhage or gross acute cortical infarct. Incidental findings as described ab ove.
--- NOTE | 2021-12-21 11:00 | CT ---
EXAMINATION TYPE: CT angio head neck DATE OF EXAM: 12/21/2021 HISTORY: Neuro deficits, cannot remember COMPARISON: Nonenhanced CT scan of the brain performed earlier same day CT DLP: 727.7 mGycm. Automated Exposure Control for Dose Reduction was Utilized. TECHNIQUE: CTA scan of the head and neck is performed with IV Contrast, patient injected with 65 mL of Isovue 370, axial images are obtained, coronal and sagittal reformatted images are reviewed. 3D re constructed images are created on an independent workstation and reviewed. FINDINGS: Carotid/Vascular Structures: Hypoplastic right vertebral artery. Scattered minimal arterial atheroscl erotic calcifications and tortuosity. Otherwise normal caliber and enhancement of the neck arteries a nd intracranial arteries without significant stenosis, occlusion, dissection, aneurysm or AV malforma tion. Patent major intracranial venous sinuses. Other: Enlarged heterogeneous thyroid gland, please correlate with thyroid ultrasound results. Degene rative changes of the cervical spine. Scattered bilateral pulmonary calcified granulomas and millimet clementina nodules. IMPRESSION: No significant arterial stenosis, occlusion or dissection seen in the major neck or the intracranial arteries. Incidental findings and recommendations as described above.
--- NOTE | 2021-12-21 11:47 | XR ---
EXAMINATION TYPE: XR chest 2V DATE OF EXAM: 12/21/2021 COMPARISON: 05/24/2020 HISTORY: Shortness of breath TECHNIQUE: Frontal and lateral views of the chest are obtained. FINDINGS: Scattered senescent parenchymal changes noted. Hyperinflation compatible with COPD. No evidence for infiltrate. No evidence for atelectasis. Heart size is stable. Mediastinal structures are stable and grossly unremarkable. No evidence for hilar prominence. Degenerative changes dorsal spine. IMPRESSION: 1. No evidence for acute pulmonary disease.
[2021-12-21] MEDS ORDERED: ACETAMINOPHEN TAB 325 MG TAB PO PRN (12:45)
[2021-12-21 15:05] LABS: Appearance,Urine Clear (Clear); Bilirubin,Urine Negative (Negative); Blood,Urine Negative (Negative); Color,Urine Light Yellow; Glucose,Urine (UA) Negative (Negative); Ketones,Urine Negative (Negative); Leukocyte Esterase,Urine Negative (Negative); Nitrite,Urine Negative (Negative); PH, Urine 7.5 (5.0-8.0); Protein,Urine Negative (Negative); Specific Gravity,Urine 1.015 (1.001-1.035); Urobilinogen,Urine <2.0 mg/dL (<2.0)
--- NOTE | 2021-12-21 15:46 | CA ---
Transthoracic Echo Report Name: Abigail Ding Age: 71 Gender: F : 1950 Exam Date: 12/21/2021 13:21 Exam Location: [facility] Ht (in): 62 Wt (lb): 186 Ordering Physician: Josue Jaime MD Attending/Referring Phys: Mattress Stuffer Suzy Pelaez RDCS Procedure CPT: Indications: stroke Cardiac Hx: Technical Quality: Fair Contrast 1: Total Dose (mL): Contrast 2: Total Dose (mL): MEASUREMENTS (Male / Female) Normal Values 2D ECHO LV Diastolic Diameter PLAX 3.7 cm 4.2 - 5.9 / 3.9 - 5.3 cm LV Systolic Diameter PLAX 2.1 cm IVS Diastolic Thickness 1.0 cm 0.6 - 1.0 / 0.6 - 0.9 cm LVPW Diastolic Thickness 1.1 cm 0.6 - 1.0 / 0.6 - 0.9 cm LV Relative Wall Thickness 0.6 LA Volume 32.7 cm??? 18 - 58 / 22 - 52 cm??? M-MODE Aortic Root Diameter MM 2.7 cm LA Systolic Diameter MM 3.6 cm LA Ao Ratio MM 1.3 AV Cusp Separation MM 1.7 cm DOPPLER AV Peak Velocity 135.3 cm/s AV Peak Gradient 7.3 mmHg LVOT Peak Velocity 122.8 cm/s LVOT Peak Gradient 6.0 mmHg MV Area PHT 2.8 cm??? Mitral E Point Velocity 59.2 cm/s Mitral A Point Velocity 88.0 cm/s Mitral E to A Ratio 0.7 MV Deceleration Time 272.7 ms MV E' Velocity 4.7 cm/s Mitral E to MV E' Ratio 12.7 TR Peak Velocity 233.9 cm/s TR Peak Gradient 21.9 mmHg Right Ventricular Systolic Press 26.7 mmHg FINDINGS Left Ventricle Normal Left ventricular size, wall thickness, systolic function with no obvious regional wall motion abnormalities. Normal Left ventricular diastolic filling pattern. Left ventricular ejection fraction is estimated at 55-60 %. Right Ventricle Right ventricle not well visualized. Right ventricular systolic pressure within normal limits. Right Atrium Normal right atrial size. Negative agitated saline bubble study for right to left shunt. Left Atrium Normal left atrial size. No evidence for an atrial septal defect. Mitral Valve Structurally normal mitral valve. No mitral stenosis. Mild mitral regurgitation. Aortic Valve No aortic valve stenosis or regurgitation. Tricuspid Valve Mild tricuspid regurgitation. Pulmonic Valve No pulmonic regurgitation. Pericardium No pericardial effusion. Aorta Normal size aortic root and proximal ascending aorta. CONCLUSIONS Normal LV size and systolic function No abnormalities Previewed by: Dr. Maxwell Rodrigues MD (Electronically Signed) Final Date: 21 December 2021 15:45
--- NOTE | 2021-12-21 15:59 | P.HPIM ---
History of Present Illness H&P Date: 12/21/21 Chief Complaint: Expressive aphasia Patient is a 71-year-old female with a past medical history of hypertension and TIA who presents to the ED with expressive aphasia. Patient states that she got up this morning at 5 AM and was having a migraine. She was unable to fall asleep. She then woke up again at 7 AM. Per patient was confused and would keep saying what day of the week is it? Patient was aware that she was disoriented so she took 2 tabs of aspirin 325 mg in case she was having a stroke. Patient states that she had similar episode about 10 years ago and was diagnosed with a TIA. She states that after that episode she had some difficulty speaking for a few days. When patient arrived to the ED she had an NIH score of 2 for expressive aphasia as she was not able to name certain items on the NIH scale. Patient states that her symptoms have now resolved. She says that she feels good and is wondering if she can go home. Her CT head was negative for bleed and CTA head and neck was negative for significant stenosis. Review of Systems 10 ROS reviewed and are negative except as noted in HPI Past Medical History Past Medical History: CVA/TIA, GERD/Reflux, Hyperlipidemia, Hypertension Additional Past Medical History / Comment(s): TIA 10 yrs ago. Sinus problems. Varicose veins. 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 Past Anesthesia/Blood Transfusion Reactions: Family History of Problems w/ Anesthesia, Postoperative Nausea & Vomiting (PONV) Additional Past Anesthesia/Blood Transfusion Reaction / Comment(s): Difficulty waking up. Mom had difficulty waking up and PONV. Past Psychological History: No Psychological Hx Reported Smoking Status: Never smoker Past Alcohol Use History: None Reported Past Drug Use History: None Reported - Past Family History Father Family Medical History: Cancer Medications and Allergies Home Medications Medication Instructions Recorded Confirmed Type Atorvastatin Calcium [Lipitor] 10 mg PO DAILY 12/03/18 12/21/21 History Aspirin EC [Ecotrin] 650 mg PO DAILY PRN 12/21/21 12/21/21 History Spironolactone-Hctz 25-25Mg 1 tab PO DAILY 12/21/21 12/21/21 History [Aldactazide 25-25Mg] Allergies Allergy/AdvReac Type Severity Reaction Status Date / Time narcotics Allergy Unknown Uncoded 12/21/21 10:27 Physical Exam Osteopathic Statement: *. No significant issues noted on an osteopathic structural exam other than those noted in the History and Physical/Consult. Vitals: Vital Signs Temp Pulse Resp BP Pulse Ox 12/21/21 14:58 77 15 111/64 98 12/21/21 11:15 64 17 133/82 98 12/21/21 09:41 98.2 F 104 H 20 155/83 100 Intake and Output 12/21/21 12/21/21 12/21/21 06:59 14:59 22:59 Other: Weight 84.595 kg General: [Alert and oriented, well nourished, no acute distress]. Eye: [PERRL, EOMI, normal conjunctiva]. HENT: [Normocephalic, clear tympanic membranes, normal hearing, moist oral mucosa, no scleral icterus, no sinus tenderness]. Neck: [Supple, non-tender, no carotid bruits, no JVD, no lymphadenopathy]. Lungs: [Clear to auscultation and percussion, non-labored respiration]. Heart: [Normal rate, regular rhythm, no murmur, gallop or edema]. Abdomen: [Soft, non-tender, non-distended, normal bowel sounds, no masses]. Musculoskeletal: [Normal range of motion and strength, no tenderness or swelling]. Skin: [Skin is warm, dry and pink, no rashes or lesions]. Neurologic: [Awake, alert, and oriented X3, CN II-XII intact]. Psychiatric: [Cooperative, appropriate mood and affect]. 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 -Check MRI without contrast -Resume aspirin and statin -Hold BP meds to allow for permissive hypertension -Consult neurology -Neuro check -Patient not a candidate for TPA as she is outside the window and also because her symptoms have resolved -UA negative for UTI History of TIA -Resume aspirin and statin Hypertension -Hold BP meds to allow for permissive hypertension CODE STATUS:full code DPOA: DVT prophylaxis: Subcu heparin Discussed with: Patient, ER, rn Anticipated length of stay < than [address]: home A total of 50 minutes was spent on the care of this complex patient more than 50% of the time was spent in counseling and care coordination.
[2021-12-21] MEDS: HEPARIN SODIUM,PORCINE/PF 5,000 UNIT/0.5 ML SYRINGE SQ SCH (20:10)
[2021-12-22 08:35] LABS: HCT 46.1 % (34.0-46.0); HGB 15.5 gm/dL (11.4-16.0); MCH 30.4 pg (25.0-35.0); MCHC 33.5 g/dL (31.0-37.0); MCV 90.8 fL (80.0-100.0); Mean Platelet Volume 8.3; Platelet Count 308 k/uL (150-450); RBC 5.08 m/uL (3.80-5.40); RDW 12.8 % (11.5-15.5); WBC 6.7 k/uL (3.8-10.6)
[2021-12-22 08:43] LABS: Calcium 9.7 mg/dL (8.4-10.2); Potassium 4.2 mmol/L (3.5-5.1)
[2021-12-22] MEDS: HEPARIN SODIUM,PORCINE/PF 5,000 UNIT/0.5 ML SYRINGE SQ SCH (08:58)
[2021-12-22] MEDS ORDERED: ATORVASTATIN 40 MG TAB PO SCH (09:00)
[2021-12-22] MEDS ORDERED: ASPIRIN 325 MG TAB PO SCH (09:00)
[2021-12-22] MEDS ORDERED: LORazepam 1 MG/0.5 ML VIAL IV STA (09:35)
[2021-12-22] MEDS ORDERED: SPIRONOLACTONE-HCTZ 25-25MG 1 EACH TAB PO SCH (09:45)
[2021-12-22 10:00] VITALS: RESP 16
--- NOTE | 2021-12-22 11:16 | MR ---
EXAMINATION TYPE: MR brain wo con DATE OF EXAM: 12/22/2021 COMPARISON: 12/21/2021 HISTORY: Neuro deficit, acute, stroke suspected TECHNIQUE: T1-weighted sagittal, T2, FLAIR, and diffusion axial, and T2 coronal coronal views of the brain are submitted. FINDINGS: There is no evidence of acute ischemia. No evidence of midline shift or mass effect. Craniocervical junction maintained. Partially empty sella turcica. Changes of chronic sinusitis with nasal septal deviation. Orbits are symmetric. There is mild generalized degenerative change. Scattered focal areas of abnormal signal in the white matter are nonspecific but most typical of remote ischemia. Prominent posterior fossa cyst most likel y related to prominent cisterna magna IMPRESSION: 1. No acute intracranial process. Degenerative and nonspecific white matter changes most typical of r emote white matter ischemia. 2. Partially empty sella turcica.
[2021-12-22 11:41] VITALS: BP 109/59; PULSE 75; TEMP 98.6
--- NOTE | 2021-12-22 12:47 | P.CNNES ---
History of Present Illness Consult date: 12/21/21 Requesting physician: Josue Jaime Reason for Consult: Confusion History of Present Illness: Patient is a 71-year-old left-handed female came to the hospital today at 9:40 AM for evaluation of loss of memory, possible TGA. Patient states that she woke up this morning at 5 AM and then she stayed up watching a video. She remembers is waking up at 9 AM with a headache, nausea and a brain fog, like she was in a dream. She had loss of memory, could not remember what day it was. She did remember that she has to go for band rehearsal but could not tell what date it was. She knew that she was at her home. She took 2 tablet of aspirins, which helped the headache. The headache was pressure, bifrontal headache related 6/10, with nausea but no vomiting. No light or noise sensitivity or neck stiffness. Patient states that she has history of migraines, but none since she had undergone menopause. This headache was completely different. She does not take any HRT. Patient states that her memory disturbance lasted for 3- 1/2 hours, now she feels back to baseline. Vital signs arrival blood pressure 155/83, pulse rate 104, temperature 98.2. Patient's blood test shows normal CBC, PT/PTT, normal Chem-7, normal hepatic panel, troponin, UA negative. CT head revealed no acute intracranial hemorrh age, or gross acute cortical infarct. EKG shows sinus rhythm with incomplete right bundle branch block. Chest x-ray showed no acute process. Patient states is 17 years ago, at age 55 she had a similar episode but it was associated with tunnel vision, slurred speech and was found to have blood pre ssure 200s/100s. She was hospitalized for 5 days. She is a never smoker, does not have diabetes. She does have hypertension. Denies any alcohol use or marijuana. She does not take any antiplatelet medication at home. Patient's home medications include Lipitor 10 mg, spironolactone/HCTZ, aspirin 650 mg daily when necessary. Review of Systems All 14 point subcu system reviewed, unremarkable except as mentioned above in detail. No chest pain, abdominal pain. She did have some nausea but no vomiting. No diarrhea. No fever or chills. No visual disturbance. Past Medical History Past Medical History: CVA/TIA, GERD/Reflux, Hyperlipidemia, Hypertension Additional Past Medical History / Comment(s): TIA 10 yrs ago. Sinus problems. Varicose veins. 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 Past Anesthesia/Blood Transfusion Reactions: Family History of Problems w/ Anesthesia, Postoperative Nausea & Vomiting (PONV) Additional Past Anesthesia/Blood Transfusion Reaction / Comment(s): Difficulty waking up. Mom had difficulty waking up and PONV. Past Psychological History: No Psychological Hx Reported Smoking Status: Never smoker Past Alcohol Use History: None Reported Past Drug Use History: None Reported - Past Family History Father Family Medical History: Cancer Medications and Allergies Home Medications Medication Instructions Recorded Confirmed Type Atorvastatin Calcium [Lipitor] 10 mg PO DAILY 12/03/18 12/21/21 History Aspirin EC [Ecotrin] 650 mg PO DAILY PRN 12/21/21 12/21/21 History Spironolactone-Hctz 25-25Mg 1 tab PO DAILY 12/21/21 12/21/21 History [Aldactazide 25-25Mg] Allergies Allergy/AdvReac Type Severity Reaction Status Date / Time narcotics Allergy Unknown Uncoded 12/21/21 10:27 Physical Examination - Vital Signs Vital Signs: Vital Signs Temp Pulse Resp BP Pulse Ox 12/21/21 16:21 75 14 132/82 94 L 12/21/21 14:58 77 15 111/64 98 12/21/21 11:15 64 17 133/82 98 12/21/21 09:41 98.2 F 104 H 20 155/83 100 Intake and Output 12/21/21 12/21/21 12/21/21 06:59 14:59 22:59 Other: Weight 84.595 kg Patient is an elderly female, very pleasant, in no acute distress. Patient is alert awake oriented to time place and person. Speech and language functions are normal. Patient can name and repeat very well. No aphasia or dysarthria. Attention, concentration and fund of knowledge is adequate. On cranial examination, pupils are equal, round and reacting to light, visual henry are full on confrontation, with no neglect on double simultaneous stimulation. Her extraocular muscles are intact with no nystagmus. Face is symmetric, tongue protrudes to the midline. Palatal elevation and sensation normal, hearing and shoulder shrug normal, facial sensation normal. Shoulder shrug normal. On muscle strength testing, there is no pronator drift and the strength is normal in arms and legs distally and proximally. Deep tendon reflexes are symmetric, 2 at the biceps, 1 brachioradialis, 2 at the knees 1 ankles and plantars downgoing bilaterally. Sensory to touch is equal with no neglect. Cerebellar function showed no ataxia for [id number] testing. No dysdiadochokinesia. Tone and bulk of muscles normal. Gait normal. On general examination, there is no carotid bruit or murmur, S1-S2 audible. Abdomen is soft nontender. No organomegaly, bowel sounds present. Chest is clear. Peripheral pulses are present. No edema. Results - Laboratory Findings CBC and BMP: 12/22/21 07:50 12/22/21 07:50 Abnormal Lab Findings: Abnormal Labs 12/21/21 12/21/21 12/21/21 10:01 10:01 10:01 Hct 47.3 H Creatinine 1.19 H Glucose 111 H POC Glucose (mg/dL) 121 H Assessment and Plan Assessment: * Probable transient global amnesia. Her symptoms lasted for about 3-1/2 hours, and then resolved. * History of similar TGA 17 years ago at age 55. * Hypertension Plan: * MRI of the brain has already been ordered to rule out any stroke. * EEG evaluate for any epileptiform activity. * CTA of head and neck showed no significant arterial stenosis, occlusion or dissection seen in the major neck or intracranial arteries. * 2-D echo revealed normal left ventricular size and systolic function. Left atrial size is normal. * Fasting lipid panel, hemoglobin A1c * Agree with starting aspirin daily. Patient started on Lipitor 40 mg daily as well. * Neurology will follow. Thank you for the consult.
--- NOTE | 2021-12-22 15:05 | P.DS ---
Providers Date of admission: 12/21/21 13:08 Expected date of discharge: 12/22/21 Attending physician: Josue Jaime MD Consults: 12/21/21 12:47 Consult Physician Routine Consulting Provider: Danika Amaya Consult Reason/Comments: confusion Do you want consulting provider notified?: Yes Primary care physician: Leah Chaparro MD Hospital Course: Discharge Diagnosis: Expressive aphasia likely due to complex migraine Hypertension History of CVA/TIA Hospital Course: Patient is a 71-year-old female with a past medical history of hypertension and TIA who presents to the ED with expressive aphasia. Patient states that she got up this morning at 5 AM and was having a migraine. She was able to fall back asleep. She then woke up again at 7 AM. Per patient was confused and would keep saying "what day of the week is it" Patient was aware that she was disoriented so she took 2 tabs of aspirin 325 mg in case she was having a stroke. Patient states that she had similar episode about 10 years ago and was diagnosed with a TIA. She states that after that episode she had some difficulty speaking for a few days. When patient arrived to the ED she had an NIH score of 2 for expressive aphasia as she was not able to name certain items on the NIH scale. Patient states that her symptoms have now resolved. She says that she feels good and is wondering if she can go home. Her CT head was negative for bleed and CTA head and neck was negative for significant stenosis. Patient was admitted for stroke workup. Her MRI was negative for acute stroke. Echocardiogram showed normal LV with negative bubble study. EEG was negative for any epileptiform activity. Patient was deemed stable for discharge. She was told to take aspirin daily. Patient's symptoms were likely due to complex migraine. Patient seen and examined at bedside.[] Vital signs reviewed and stable. General: [non toxic], [no distress], [appears at stated age] Derm: [warm], [dry] Head: [atraumatic], [normocephalic], [symmetric] Eyes: [EOMI], [no lid lag], [anicteric sclera] Mouth: [no lip lesion], [mucus membranes moist] Cardiovascular: [S1S2 reg], [no murmur], [positive posterior tibial pulse bilateral], Lungs: [CTA bilateral], [no rhonchi, no rales] , [no accessory muscle use] Abdominal: [soft], [ nontender to palpation], [no guarding], [no appreciable organomegaly] Ext: [no gross muscle atrophy], [no edema], [no contractures] Neuro: [ CN II-XI grossly intact], [no focal neuro deficits] Psych: [Alert], [oriented], [appropriate affect] A total of [33] minutes of time were spent preparing this complex discharge summary . Patient Condition at Discharge: Stable Plan - Discharge Summary Discharge Rx Participant: No New Discharge Prescriptions: New Aspirin 81 mg PO DAILY 30 Days #30 tab Continue Atorvastatin Calcium [Lipitor] 10 mg PO DAILY Spironolactone-Hctz 25-25Mg [Aldactazide 25-25 MG] 1 tab PO DAILY Discontinued Aspirin EC [Ecotrin] 650 mg PO DAILY PRN PRN Reason: Pain Discharge Medication List Atorvastatin Calcium [Lipitor] 10 mg PO DAILY 12/03/18 [History] Spironolactone-Hctz 25-25Mg [Aldactazide 25-25 MG] 1 tab PO DAILY 12/21/21 [History] Aspirin 81 mg PO DAILY 30 Days #30 tab 12/22/21 [Rx] Follow up Appointment(s)/Referral(s): Leah Chaparro MD [Primary Care Provider] - 1-2 days Discharge Disposition: HOME SELF-CARE
[2021-12-22 15:30] LABS: Chol/HDL Ratio 3.59 Ratio; LDL Cholesterol,Calculated 85.6 mg/dL (0.0-131.0)
--- NOTE | 2021-12-22 18:30 | EEG ---
ELECTROENCEPHALOGRAM REPORT DATE OF SERVICE: 12/22/2021 PREAMBLE: This is a 71-year-old female who has presented with transient global amnesia. This study is performed to rule out any epileptiform activity. EEG FINDINGS: This is a 21 channel digital EEG recorded with video component, utilizing 10/20 international system with referential and bipolar montages. Background consists of well developed, well regulated, low voltage activity in around 8 hertz alpha. Background is posterior dominant and reactive to eye opening and closing. Photic driving response was seen with some flash frequencies. Drowsiness was seen with presence of bilaterally symmetric theta frequency rhythm. Deeper stages of sleep were not seen. No focal or generalized epileptiform activity was seen. EKG channel showed no arrhythmia. IMPRESSION: This is a normal awake and drowsy EEG. No focal, lateralized or epileptiform activity was seen. MMODL / IJN: [id number] /
== END 2021-12-22 16:13 | disposition home or self-care (01) ==
LOC: EC 09:40 → 3SCARD 13:08
PROVIDERS: ADMIT Internal Medicine; ATTEND Internal Medicine
DX: R47.01 Aphasia (principal); R29.702 NIHSS score 2; G43.909 Migraine, unspecified, not intractable, without status migrainosus; I45.10 Unspecified right bundle-branch block; I10 Essential (primary) hypertension; E78.5 Hyperlipidemia, unspecified; K21.9 Gastro-esophageal reflux disease without esophagitis; I83.90 Asymptomatic varicose veins of unspecified lower extremity; Z86.16 Personal history of COVID-19; Z79.82 Long term (current) use of aspirin; Z79.899 Other long term (current) drug therapy; Z88.5 Allergy status to narcotic agent; Z86.73 Personal history of transient ischemic attack (TIA), and cerebral infarction without residual deficits; Z98.51 Tubal ligation status; Z98.890 Other specified postprocedural states; Z80.9 Family history of malignant neoplasm, unspecified
CPT/HCPCS: 96372 ×2; 96374; 96361; 99291; 36415; 94760; 95816; 93005; 93306; 92523; 80061; 80053; 80048; 83735; 84484; 85025; 85027; 85610; 85730; 81003; 83036; 71046; 70496; 70450; 70498; 70551; G0378 ×2; J2060; Q9967; J1644 ×2

== ENCOUNTER → 2023-02-18 | Outpatient (CLI) | payer MEDICARE ==
--- NOTE | 2023-02-20 14:52 | MM ---
Reason for Exam: Screening (asymptomatic). Last mammogram was performed 2 year(s) and 2 month(s) ago. Patient History: Menarche at age 13. First Full-Term at age 22. Postmenopausal. Maternal grandmother had breast cancer, age 75. Risk Values: Malathi 5 year model risk: 1.6%. NCI Lifetime model risk: 3.9%. Prior Study Comparison: 04/12/2014 Bilateral Screening Mammogram, [facility]. 10/30/2017 Bilateral Screening Mammogram, [facility]. 11/29/2020 Bilateral Screening Mammogram, [facility]. Tissue Density: There are scattered fibroglandular densities. Findings: Analyzed By CAD. No significant changes when compared with prior studies. No discrete abnormality. Overall Assessment: Negative, BI-RAD 1 Management: Screening Mammogram of both breasts in 1 year. A clinical breast exam by your physician is recommended on an annual basis and results should be correlated with mammographic findings. Electronically signed and approved by: Castillo Redd M.D. Radiologis
== END | disposition home or self-care (01) ==
LOC: RADMAMWWP 14:52
PROVIDERS: ATTEND Family Medicine
DX: Z12.31 Encounter for screening mammogram for malignant neoplasm of breast (principal); Z78.0 Asymptomatic menopausal state; Z80.3 Family history of malignant neoplasm of breast
CPT/HCPCS: 77063; 77067

== ENCOUNTER → 2024-03-18 | Outpatient (CLI) | payer MEDICARE ==
--- NOTE | 2024-03-19 12:21 | MM ---
Reason for Exam: Screening (asymptomatic). Last mammogram was performed 1 year(s) and 1 month(s) ago. Patient History: Menarche at age 13. First Full-Term at age 22. Postmenopausal. Other cancer at or over age 50. Paternal grandmother had breast cancer, age 75. Risk Values: Malathi 5 year model risk: 1.6%. NCI Lifetime model risk: 3.7%. Prior Study Comparison: 10/30/2017 Bilateral Screening Mammogram, [facility]. 11/29/2020 Bilateral Screening Mammogram, [facility]. 02/18/2023 Bilateral MG 3D screening mammo w/cad, [facility]. Tissue Density: The breasts are heterogeneously dense, which may obscure small masses. Findings: Analyzed By CAD. No suspicious calcifications. There is an asymmetric density in the inner lower margin of the right breast for spot compression view recommended. Benign calcifications. Chronic nodularity or lymph node is stable. Overall Assessment: Incomplete: need additional imaging evaluation, BI-RAD 0 Management: Diagnostic Mammogram of the right breast. . Patient should continue monthly self-breast exams. A clinical breast exam by your physician is recommended on an annual basis. This exam should not preclude additional follow-up of suspicious palpable abnormalities. Note on Malathi scores and lifetime risk: 1. A Malathi score greater than 3% is considered moderate risk. If this is the case, consider specialist referral to assess eligibility for a risk reducing agent. 2. If overall lifetime risk for the development of breast cancer is 20% or higher, the patient may qualify for future screening with alternating mammogram and breast MRI. [facility], , 03/19/2024 12:19 PM. Electronically signed and approved by: Manuelito Lindsey M.D. Radiologis
== END | disposition home or self-care (01) ==
LOC: RADMAMWWP 07:19
PROVIDERS: ATTEND Family Medicine
DX: Z12.31 Encounter for screening mammogram for malignant neoplasm of breast
CPT/HCPCS: 77063; 77067

== ENCOUNTER → 2024-04-02 | Outpatient (CLI) | payer MEDICARE ==
--- NOTE | 2024-04-03 07:35 | MM ---
Reason for Exam: Additional evaluation requested from abnormal screening. Last screening mammogram was performed less than 1 month ago. Patient History: Menarche at age 13. First Full-Term at age 22. Postmenopausal. Other cancer at or over age 50. Paternal grandmother had breast cancer, age 75. Risk Values: Malathi 5 year model risk: 1.6%. NCI Lifetime model risk: 3.7%. Prior Study Comparison: 11/29/2020 Bilateral Screening Mammogram, [facility]. 02/18/2023 Bilateral MG 3D screening mammo w/cad, [facility]. 03/18/2024 Bilateral MG 3D screening mammo w/cad, [facility]. Tissue Density: Right: The breasts are heterogeneously dense, which may obscure small masses. Findings: Analyzed By CAD. Asymmetric nodular density is seen dating back to 2020. Six-month follow-up is advised. Overall Assessment: Probably benign, BI-RAD 3 Management: Diagnostic Mammogram of the right breast in 6 months. . Results were given to the patient verbally at the time of exam. Patient should continue monthly self-breast exams. A clinical breast exam by your physician is recommended on an annual basis. This exam should not preclude additional follow-up of suspicious palpable abnormalities. Note on Malathi scores and lifetime risk: 1. A Malathi score greater than 3% is considered moderate risk. If this is the case, consider specialist referral to assess eligibility for a risk reducing agent. 2. If overall lifetime risk for the development of breast cancer is 20% or higher, the patient may qualify for future screening with alternating mammogram and breast MRI. [facility], , 04/02/2024 3:01 PM. Electronically signed and approved by: Castillo Redd M.D. Radiologis
== END | disposition home or self-care (01) ==
LOC: RADMAMWWP 14:39
PROVIDERS: ATTEND Family Medicine
DX: R92.8 Other abnormal and inconclusive findings on diagnostic imaging of breast
CPT/HCPCS: 77061; 77065

== ENCOUNTER → 2024-12-04 | Outpatient (CLI) | payer MEDICARE ==
--- NOTE | 2024-12-04 08:51 | MM ---
Reason for Exam: Follow-up at short interval from prior study. Last screening mammogram was performed 9 month(s) ago. Patient History: Menarche at age 13. First Full-Term at age 22. Postmenopausal. Other cancer at or over age 50. Paternal grandmother had breast cancer, age 75. Risk Values: Malathi 5 year model risk: 1.6%. NCI Lifetime model risk: 3.7%. Prior Study Comparison: 02/18/2023 Bilateral MG 3D screening mammo w/cad, [facility]. 03/18/2024 Bilateral MG 3D screening mammo w/cad, [facility]. 04/02/2024 Right MG work up mamm w CAD RT, [facility]. Tissue Density: Right: There are scattered areas of fibroglandular density. Findings: Analyzed By CAD. No dominant mass or architectural distortion. No suspicious grouped calcifications. Overall Assessment: Benign, BI-RAD 2 Management: Screening Mammogram of both breasts in 6 months. . Results were given to the patient verbally at the time of exam. Patient should continue monthly self-breast exams. A clinical breast exam by your physician is recommended on an annual basis. This exam should not preclude additional follow-up of suspicious palpable abnormalities. Note on Malathi scores and lifetime risk: 1. A Malathi score greater than 3% is considered moderate risk. If this is the case, consider specialist referral to assess eligibility for a risk reducing agent. 2. If overall lifetime risk for the development of breast cancer is 20% or higher, the patient may qualify for future screening with alternating mammogram and breast MRI. [facility], , 12/04/2024 8:46 AM. Electronically signed and approved by: Manuelito Lindsey M.D. Radiologis
== END | disposition home or self-care (01) ==
LOC: RADMAMWWP 08:20
PROVIDERS: ATTEND Family Medicine
DX: R92.8 Other abnormal and inconclusive findings on diagnostic imaging of breast (principal); R92.323 Mammographic fibroglandular density, bilateral breasts; Z78.0 Asymptomatic menopausal state
CPT/HCPCS: 77061; 77065